=== PATIENT | male | born 1975 | race Caucasian/White ===

== ENCOUNTER 2024-03-17 15:36 | Inpatient (IN) | payer OTHER, SELFPAY ==
[2024-03-17 11:44] VITALS: BP 196/96
--- NOTE | 2024-03-17 13:16 | ED.GENMED ---
History of Present Illness
General
Chief Complaint: Skin Problem
Source: patient and family
Exam Limitations: none
Time Seen by Provider: 03/17/24 12:48
Nursing documentation reviewed up to this point in time: agreed with
History of Present Illness
History of Present Illness:
48-year-old male originally from [place] Works as a pentecostalism person at the [employer], presents for swelling of his left foot is diabetic he has had his great toe amputated
His diet she was debrided callus from his plantar surface has been on antibiotics increased swelling no fever no confusion minimal drainage there is some warmth of his foot
Past History
Past History
ED Past Medical History: NIDDM
ED Past Surgical History: Orthopedic (Amputation of great toe) and Other (Left great toe amputation)
Social History
Tobacco: Non-smoker
Alcohol: None
Drug: None
Living: with family
Employment: Employed
Family History
Family History: Diabetes
Review of Systems
Review of Systems
All Other Systems: Not applicable
Constitutional: Denies fever or fatigue
EENT: Reports no symptoms
Phy Exam
Physical Exam
Physical Exam:
Physical Exam
General: no apparent distress, not acutely ill
Neck: No jaundice
Heart: s1/s2 regular rate and rhythm, no murmur. equal radial pulses.
Lungs: no acute respiratory distress. clear bilaterally
Neuro: alert and oriented. no focal neurological deficits
Skin: no rash
Psychiatric: well kept. interactive and cooperative
Extremities: Surgically absent left great toe eschar with erythema on the left foot of the left proximal calf
Course
Orders/Labs/Results
Orders:
Orders
03/17/24 12:54
Foot, Left 3 View [CR Foot - Left Min 3 Views] Urgent
Comment:
Reason For Exam: infection
03/17/24 13:12
CRP [C-Reactive Protein] Urgent
Complete Blood Count/With Diff Urgent
Comprehensive Metabolic Panel Urgent
ESR [Erythrocyte Sed Rate] Urgent
Abnormal Lab Results
03/17/24
13:12
WBC 4.4 L 10^3/uL
(4.8-10.8)
RBC 4.14 L 10^6/uL
(4.70-6.10)
Hgb 12.1 L g/dL
(13.0-18.0)
Hct 36.2 L %
(39.0-52.0)
Monocytes % 11.1 H %
(1.7-9.3)
ESR 64 H mm/hour
(0-20)
BUN 37 H mg/dl
(9-20)
Glucose 150 H mg/dl
(70-99)
C-Reactive Protein 42.90 H mg/L
(0.0-10.00)
03/17/24 13:12
03/17/24 13:12
Vital Signs
Initial and Last Documented VS:
Initial Vital Signs
Temp Pulse Resp BP Pulse Ox
98.2 F 62 16 196/96 98
03/17/24 11:44 03/17/24 11:44 03/17/24 11:44 03/17/24 11:44 03/17/24 11:44
Last Documented Vital Signs
Temp Pulse Resp BP Pulse Ox
98.2 F 62 16 196/96 98
03/17/24 11:44 03/17/24 11:44 03/17/24 11:44 03/17/24 11:44 03/17/24 11:44
MDM/Problems Addressed
Differential Diagnosis Includes:
Cellulitis osteomyelitis abscess nonvisualized foreign body
MDM/Problems Addressed:
Diabetic foot
Chronic conditions affecting care:
Diabetes
Chronic conditions affecting care: DM
Acute Exacerbation and/or Progression of Chronic Illness: DM
*Radiology
Radiology exam reviewed: radiology read reviewed
*Pulse Oximetry
Patient hypoxic: no
*Critical Care Note
Total Time (30-74mins, 75-104mins- exclusive of procedures): Not Applicable
Update Note
Update Note:
Update labs noted sed rate CRP noted x-ray pending
ED Attending Note
-
Portions of this chart may have been created with voice recognition software.� Occasional wrong word or��sound alike� substitutions may have occurred due to the inherent limitations of voice recognition software.
Discharge Plan
Departure
Patient Disposition: Admit
Date of Disposition: 03/17/24
Time of Disposition: 14:24
Admit to: Med/Surg
Presentation/result/management discussed w/ accepting MD/DO: Hospitalist
Patient with high blood pressure during this ER visit?: No
Condition: Fair
Discharge Problem:
Diabetic foot ulcer, Cellulitis of left foot
Prescriptions:
No Action
metformin 500 mg Tablet
500 mg PO BID@0800,1700 Qty: 60 0RF
cyanocobalamin (vitamin B-12) 1,000 mcg Tablet
1,000 mcg PO DAILY
lisinopril 5 mg tablet
5 mg PO DAILY
cefazolin 10 gram Recon Soln
2 g IV Q8H Qty: 126 0RF
Rx Instructions:
6 week supply
(DME) OneTouch Verio test strips Strip
Qty: 100 0RF
Rx Instructions:
test AM sugars while on Lantus
insulin glargine [Basaglar KwikPen U-100 Insulin] 100 unit/mL (3 mL) Insulin Pen
10 unit SC HS Qty: 5 0RF
(DME) pen needle, diabetic [BD Ultra-Fine Nivia Pen Needle] 32 gauge x 5/32' Needle
Qty: 200 0RF
Rx Instructions:
As Directed
(DME) lancets [Color Lancets] 21 gauge Misc
Qty: 100 0RF
Rx Instructions:
As Directed
Referrals:
UNKNOWN - PT DOES,NOT KNOW [Family Provider] -
Interventions
Interventions:
*Risk Screen - Suicide Last Done: 03/17/24 11:44
*Neglect/Abuse Screening Last Done: 03/17/24 11:44
ED-Skin Assessment Last Done: 03/17/24 13:10
Discharge Date and Time
Print Language: SOMALI
[2024-03-17 13:24] LABS: % Basophils 0.7 % (0-2); % Eosinophils 2.3 % (0-6); % Immature Granulocytes 0.2 % (0-0.5); % Lymphocytes 29.1 % (20.5-51.1); % Monocytes 11.1 % (1.7-9.3); % Neutrophils 56.6 % (42.2-75.2); Absolute Eosinophils 0.1 10^3/uL (0-0.7); Absolute Lymphocytes 1.3 10^3/uL (1.2-3.4); Absolute Monocytes 0.5 10^3/uL (0.1-0.6); Absolute Neutrophils 2.5 10^3/uL (1.4-6.5); Hematocrit 36.2 % (39.0-52.0); Hemoglobin 12.1 g/dL (13.0-18.0); Mean Corp Hgb Conc. 33.4 g/dL (33.0-37.0); Mean Corpuscular Hgb 29.2 pg (27.0-31.0); Mean Corpuscular Volume 87.4 fL (80.0-94.0); Mean Platelet Volume 8.9 fL (7.4-10.4); Nucleated Red Blood Cells % 0 % (-); Platelet Count 375 10^3/uL (130-400); Red Blood Cell Count 4.14 10^6/uL (4.70-6.10); Red Cell Dist. Width 12.1 % (11.5-14.5); White Blood Cell Count 4.4 10^3/uL (4.8-10.8)
[2024-03-17 13:41] LABS: ALT (SGPT) 18 U/L (0-50); AST (SGOT) 24 U/L (17-59); Albumin 4.4 g/dl (3.5-5.0); Alkaline Phosphatase 60 U/L (38-126); Blood Urea Nitrogen 37 mg/dl (9-20); Calcium 9.8 mg/dl (8.4-10.2); Carbon Dioxide 26 mmol/L (22-30); Chloride 101 mmol/L (98-107); Glucose 150 mg/dl (70-99); Potassium 4.7 mmol/L (3.5-5.1); Sodium 142 mmol/L (135-145); Total Bilirubin 0.7 mg/dl (0.2-1.3); Total Protein 7.4 g/dl (6.3-8.2); eGFR > 60.00
--- NOTE | 2024-03-17 14:02 | HPS.HSE ---
Family Physician
-
Family Physician: NOT KNOW UNKNOWN - PT DOES
Chief Complaint
-
Foot infection
History of Present Illness
Patient is a 48-year-old male with past medical history significant for type 2 diabetes, hypertension, hyperlipidemia and iron deficiency who presented to [facility] ED for selling to left foot. Patient has history of osteomyelitis and left great
toe amputation. Patient states he has had a callused area on left foot for approximately a year. last Sunday, March 10, 2024, he saw podiatry outpatient for increased pain, where podiatry did a debridement of callus and placed on oral antibiotics.
Oral antibiotics failed and patient presented for evaluation for increased swelling and pain. Patient denies any fever, chills, chest pain, shortness of breath, cough, nausea, vomiting, constipation, diarrhea or urinary symptoms.
Medical History
Past Medical History
Past Medical History: Reports Other
Additional Past Medical History:
Type 2 diabetes
Hypertension
Hyperlipidemia
Iron deficiency
Past Surgical History: Reports Other
Additional Past Surgical History:
Left great toe amputation 04/2022
Social History
Tobacco: Non-smoker
Alcohol: None
Drug: None
Personal: Single
Living: With Roomate ([facility] at [facility])
Employment: Employed
Family History
Family History: Not pertinent
Allergies / Home Medications
Allergies reflects when Allergies were last updated in [employer].
Home Medications with original date entered in [employer]
Allergy/Medication List:
Allergies
Allergy/AdvReac Type Severity Reaction Status Date / Time
No Known Allergies Allergy Verified 03/17/24 11:48
Home Medications
metformin 500 mg tablet 500 mg PO BID@0800,1700 Diabetes #60 tabs 05/10/22
cyanocobalamin (vitamin B-12) 1,000 mcg tablet 1,000 mcg PO DAILY Supplement 09/22/22
lisinopril 5 mg tablet 5 mg PO DAILY Blood pressure 09/22/22
collagenase clostridium histo. 250 unit/gram topical ointment (Santyl) 1 applic topical HS foot wound 03/17/24
ezetimibe 10 mg tablet 10 mg PO HS 03/17/24
rosuvastatin 10 mg tablet 10 mg PO HS 03/17/24
Review of Systems
-
History Source: Patient
Constitutional: Reports No Symptoms
EENT: Reports No Symptoms
Respiratory: Reports No Symptoms
Cardiac: Reports No Symptoms
Abdomen/GI: Reports No Symptoms
: Reports No Symptoms
Musculoskeletal: Reports Other (Left foot pain)
Skin: Reports Other (Left foot plantar wound)
Neurological: Reports No Symptoms
Endocrine: Reports No Symptoms
Hematologic/Lymphatic: Reports No Symptoms
Psych: Reports No Symptoms
Physical Exam
Vital Signs
Vital Signs
Temp Pulse Resp BP Pulse Ox
98.2 F 62 16 196/96 98
03/17/24 11:44 03/17/24 11:44 03/17/24 11:44 03/17/24 11:44 03/17/24 11:44
Physical Exam
General: Well Developed, Well Nourished, No Apparent Distress, Comfortable and Conversant (has observation nurse present to assist with some conversation)
HEENT: NormoCephalic, Moist mucous membranes, Atraumatic, Good Dentition, Barnard Conjunctivae, Nose Appears Normal and Ears Appear Normal
Respiratory: Clear and Non Labored Respirations; No Wheezes, Rales, Rhonchi or Crackles
Cardiac: S1/S2 and Regular Rhythm; No Murmur, Rub or Gallop
Breast: Deferred by me
GI: Soft, Non Tender, Non Distended and Normal Bowel Sounds; No Organomegaly
Rectal: Deferred by Provider
Genito-urinary: Deferred by me
Musculoskeletal: No Clubbing, No Cyanosis, Normal Gait & Station and Other (edema at site of wound on left plantar foot)
Skin: Warm, Dry, Lesions (left plantar foot wound with redness, edema and warm to touch no drainage present) and IV/Catheter Site; No Rash
Neuro: Awake, Alert, AO x 3, Nonfocal/grossly intact and Cranial Nerves Intact
Hematologic/Lymphatic: No Lymphadenopathy
Psych: Calm and Intact Judgment/Insight
Laboratory Results
-
03/17/24 13:12
03/17/24 13:12
Laboratory Results
Total Bilirubin 0.7 mg/dl (0.2-1.3) 03/17/24 13:12
AST 24 U/L (17-59) 03/17/24 13:12
ALT 18 U/L (0-50) 03/17/24 13:12
Alkaline Phosphatase 60 U/L (38-126) 03/17/24 13:12
Data Reviewed
-
Lab Data: Labs Reviewed by me
Impression/Plan
-
IMPRESSION/PLAN:
#Left foot infection/osteomyelitis?
- open wound to left foot sole
- Hx osteomyelitis with left great toe amputation
- X-Ray: pending
- MRI: pending
- Admit to med/surg for further management
- Consult Podiatry
- Consult ID
- IV Vanco
#Type 2 diabetes
- continue metformin
- AccuCheck with SSI AC&HS
#Hypertension
- continue lisinopril
- PRN Hydralazine for SBP >165 and DBP >110
#Hyperlipidemia
- continue ezetimibe and rosuvastatin
#Iron deficiency
- continue vit B12
Full Code
DVT Px: Lovenox sq
[2024-03-17 14:22] LABS: Erythrocyte Sed Rate 64 mm/hour (0-20)
--- NOTE | 2024-03-17 14:50 | W.PN.UPDATE ---
Update Note
Progress Note Update
I could not get any information from the patient as little Anguillan proficiency. mainly Cook Islander speaker
Information gathered by chart review and speaking with the ER staff and AP
This note serves as an addendum to the H&P by business management consultant LINDA Elmira Lyman
HPI
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
- s/p Lt great toe amputation
- s/p debrided callus last Sunday03/10/24 from plantar surface has been on antibiotics but increased swelling
- no fever no confusion minimal drainage there is some warmth of his foot
- HX MRSA POS WD Cx in September 2022
Reviewed VS: afebrile BP 195/95 HR 60
PE
Gen: Not toxic, conversant, little Anguillan speaker
HEENT: anicteric
Neck: supple
Lungs: CTA
Cor: RRR S1 S2
Abdomen: soft benign
PIPE COREMAKER: AAO3 NFND
MS: surgically absent left great toe eschar with erythema on the left foot of the left proximal calf
Psych: seems appropriate
Data
Laboratory Tests
03/17/24
13:12
WBC 4.4 L
Hgb 12.1 L
Plt Count 375
BUN 37 H
Creatinine 1.1
Glucose 150 H
C-Reactive Protein 42.90 H
03/17/24 MRI Gabby pending
09/24/22 Lt Gabby MRI
1. Extensive infection of the forefoot, as detailed above.
- Osteomyelitis of the residual first metatarsal shaft, second metatarsal, second proximal phalanx, third metatarsal, third proximal phalanx, distal fourth metatarsal, and base of the fourth proximal phalanx.
- Plantar forefoot soft tissue wound with a contiguous soft tissue abscess in the second intermetatarsal space and surrounding the heads of the second and third metatarsals.
- Cellulitis and infectious myositis throughout the forefoot superimposed upon the chronic changes of diabetic myopathy.
2. Dorsal dislocations of the second and third metatarsophalangeal joints.
3. Hallux amputation at the level of the mid metatarsal shaft.
ASSESSMENT & PLAN
Left diabetic foot infection s/p
HX MRSA POS WD infection : s/p debrided callus last Sunday03/10/24 from plantar surface
- Elevated CRP
- MRI of Lt Gabby pending
- Empiric IV Vancomycin
- Podiatry consulted
- ID consult
DM2 with hyperglycemia
- hyperglycemia in setting of acute infection
- A1c 7.3%, previously 11.3% 6 months ago
- c/w Metformin
- No longer on Lantus
- add Low SSI
Essential hypertension
-continue lisinopril
- add IV Hydralazine PRN > SBL 165. DBP > 110
Chronic normocytic anemia -unclear etiology
DVT ppx: Lovenox
Code: Full
IP MS
[2024-03-17 14:59] VITALS: BMI 28.9
--- NOTE | 2024-03-17 15:13 | PHA.VAN.IN ---
Assessment
- Assessment
Renal Function: Appears similar to baseline
Concomitant Antimicrobials: none
Historical Micro: History of MRSA infection (toe wound culture )
- Previous Dosing Experience
Previous Regimen: 1500 mg q12h
Date of Regimen: May 2022
Provided Trough of: 11.2
Provided AUC of: 405
Patient's SCR is: Similar to previous dosing experience (previous scr 0.7-> 1.0)
Patient's weight is: Elevated compared to previous dosing experience (96.9 vs 102 kg)
AUC Dosing Plan
- Dosing Variables
Dosing Weight (kg): 102
Dosing CrCl (ml/min): 93
Vd coefficient (L/kg): 0.7
- Empiric Dosing
Initial / Loading Dose: 2000 mg x 1 - adm pending
Maintenance Regimen: 1500 mg q12h - to start AM 03/18/24
Estimated AUC (mcg*h/mL): 547
Estimated Peak (mcg*h/mL): 33.6
Estimated Trough (mcg/ml): 14.3
Estimated Half Life (H): 8.5
- Monitoring
No levels ordered at this time: consider levels when pt reached steady state
Pharmacokinetics Vancomycin I
- -
Patient Age: 48
Patient Sex: Male
Vancomycin Day #: 1
Indication: Skin And Soft Tissue
Requesting Provider: Elmira Lyman
Height / Weight:
Height 6 ft 2 in
Actual Weight 102.058 kg
Pertinent Past Medical History: DM, L toe amputation 04/27
- Vital Signs / Lab Results
Temp Pulse Resp BP Pulse Ox
98.2 F 62 16 196/96 98
03/17/24 11:44 03/17/24 11:44 03/17/24 11:44 03/17/24 11:44 03/17/24 11:44
Lab Results - Hematology
03/17/24
13:12
WBC 4.4 L
Lab Results - Chemistry
03/17/24
13:12
BUN 37 H
Creatinine 1.1
Albumin 4.4
[2024-03-17] MEDS: VANCOCIN 540 MG IV (16:26)
[2024-03-17 17:00] VITALS: BP 155/83
[2024-03-17 17:32] LABS: Glucose - Point of Care 126 mg/dl (70-99)
[2024-03-17] MEDS: NOVOLOG FLEXPEN-LOW RESISTANCE SC (17:47)
[2024-03-17] MEDS: LOVENOX 40 MG SC (17:47)
--- NOTE | 2024-03-17 17:47 | CON.ID ---
Consultation
-
Date/Time Consultation Requested: 03/17/24 16:38
Date/Time Consultation Performed: 03/17/24 17:48
Requesting Provider: Nura GREGORY
Performing Provider: Dr Ellis
Reason for Consultation: diabetic foot infection
Chief Complaint / Past History
Chief Complaint
foot infection
History of Present Illness
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
yielded no growth, biopsy of the 2nd metatarsal bone yielded no growth, wound culture yileded few MSSA; he is s/p amputation of the great toe and partial amputation of the 1st metatarsal in september 2022. He completed a 6 week course of cefazolin for
the suspected residual osteomyelitis. In the interim he has generally done well, reports no fevers or chills. As part of his profession he does spend extended periods of time walking. He did develop a callous with increasing pain overlying the
residual distal first left metatarsal which was routinely debrided, later developing a blister and then a fistula draining some bloody fluid. Patient denies any fever, chills, chest pain, shortness of breath, cough, nausea, vomiting, constipation,
diarrhea or urinary symptoms.
Since arrival here he has been afebrile, bp stable, wbc 4.4, hgb 12, plt 375, cr 1.1, crp 42, MRI today (not availble during my exam but now reported) shows 'Acute osteomyelitis involving the entire second metatarsal, the majority of the second
proximal phalanx, the head of the third metatarsal, and the third proximal phalanx with osseous destructive changes of osteomyelitis/septic arthritis centered at the second and third metatarsophalangeal joints. Large plantar soft tissue wounds.
Chronic dorsal dislocations of the second and third metatarsophalangeal joints' progression from last year. wound cultures aerobic and anaerobic have been obtained.
Past History
Additional Past Medical History:
Type 2 diabetes
Hypertension
Hyperlipidemia
Iron deficiency
Additional Past Surgical History:
Left great toe amputation 04/2022
Allergy History:
No Known Allergies Allergy (Verified 03/17/24 11:48)
Medications Reviewed: Yes
Social History
Tobacco: Non-Smoker
Alcohol: None
Drug: None
Personal: Single
Family History
Family History: Not Pertinent
Review of Systems
Review of Systems
General: Negative Fever, Chills or Change in Appetite
All systems: All other systems were reviewed and were negative
Vital Signs
Temp Pulse Resp BP Pulse Ox
98.1 F 61 18 155/83 97
03/17/24 17:00 03/17/24 17:00 03/17/24 17:00 03/17/24 17:00 03/17/24 17:00
Physical Exam
Physical Exam
Constitutional: No Acute Distress
Cardiovascular: Regular Rate and S1/S2; Negative Murmur or Rub
Pulmonary: Clear and Symmetric; Negative Wheezes, Rales or Rhonchi
Gastrointestinal: Soft, Non Tender, Non Distended and Normal Bowel Sounds
Skin: Warm and Dry; Negative Rash or Jaundice
Wound: Other (callous over L residual metatarsal with small fistula without definite probe to bone)
Lab / Diagnostic Study Results
03/17/24 13:12
03/17/24 13:12
Abs Immat Gran (auto) 0.0 10^3/uL (0-0.05) 03/17/24 13:12
Absolute Neuts (auto) 2.5 10^3/uL (1.4-6.5) 03/17/24 13:12
Absolute Lymphs (auto) 1.3 10^3/uL (1.2-3.4) 03/17/24 13:12
Absolute Monos (auto) 0.5 10^3/uL (0.1-0.6) 03/17/24 13:12
Absolute Basos (auto) 0.0 10^3/uL (0-0.2) 03/17/24 13:12
Immature Gran % 0.2 % (0-0.5) 03/17/24 13:12
Neutrophils % 56.6 % (42.2-75.2) 03/17/24 13:12
Lymphocytes % 29.1 % (20.5-51.1) 03/17/24 13:12
Monocytes % 11.1 % (1.7-9.3) H 03/17/24 13:12
Eosinophils % 2.3 % (0-6) 03/17/24 13:12
Basophils % 0.7 % (0-2) 03/17/24 13:12
ESR 64 mm/hour (0-20) H 03/17/24 13:12
C-Reactive Protein 42.90 mg/L (0.0-10.00) H 03/17/24 13:12
Microbiology Results
Micro:
03/17/24 17:18 Anaerobic Culture - Pending
Foot - Left
03/17/24 17:18 Wound Culture - Pending
Foot - Left Gram Stain - Pending
Assessment / Plan
Suspected relapse of osteomyelitis of 2nd metatarsal/phalanx, head of 3rd metatarsal/phalanx, 2nd/3rd MTP joints
H/o Osteomyelitis due to MSSA
Diabetic Foot Infection
DM2
- if fever or shock then would get blood cultures x2
- aerobic and anaerobic cultures of the wound done
- agree with vancomycin for now
- if patient goes for surgery, would obtain cultures of the bone as well
- given stability would not broaden therapy yet as yield of future cultures would be impacted
--- NOTE | 2024-03-17 19:30 | PTCARENOTE ---
Pt received at change of shift from day shift nurse. Pt pleasant, AAOX3, VSS, and resting in bed. Pt does not complain of any pain at this time. Pt bed in lowest position and call jesus within reach. Pt educated on importance of call jesus usage, pt
relays understanding and cooperation. Will continue with current plan of care.
[2024-03-17] MEDS: CRESTOR 10 MG PO (21:03)
[2024-03-17] MEDS: ZETIA 10 MG PO (21:03)
[2024-03-17 21:41] LABS: Glucose - Point of Care 137 mg/dl (70-99)
[2024-03-17 23:20] VITALS: BP 134/69
[2024-03-18] MEDS: VANCOCIN 530 MG IV ×2 (05:52→17:56)
[2024-03-18] MEDS: ZESTRIL 5 MG PO (07:23)
[2024-03-18] MEDS: VITAMIN B-12 1000 MCG PO (07:23)
[2024-03-18 07:26] LABS: Glucose - Point of Care 145 mg/dl (70-99)
[2024-03-18] MEDS: NOVOLOG FLEXPEN-LOW RESISTANCE SC ×2 (07:28→16:37)
[2024-03-18 07:47] VITALS: BP 139/75
[2024-03-18 08:48] LABS: Hematocrit 34.6 % (39.0-52.0); Hemoglobin 11.8 g/dL (13.0-18.0); Mean Corp Hgb Conc. 34.1 g/dL (33.0-37.0); Mean Corpuscular Hgb 30.4 pg (27.0-31.0); Mean Corpuscular Volume 89.2 fL (80.0-94.0); Mean Platelet Volume 8.8 fL (7.4-10.4); Platelet Count 341 10^3/uL (130-400); Red Blood Cell Count 3.88 10^6/uL (4.70-6.10)
[2024-03-18 09:25] LABS: Blood Urea Nitrogen 27 mg/dl (9-20); Calcium 9.3 mg/dl (8.4-10.2); Carbon Dioxide 26 mmol/L (22-30); Chloride 106 mmol/L (98-107); Estimated Creatinine Clearance 93 ml/min; Glucose 156 mg/dl (70-99); Potassium 4.7 mmol/L (3.5-5.1); Sodium 142 mmol/L (135-145); eGFR > 60.00
[2024-03-18 09:34] LABS: Glycohemoglobin (HgbA1c) 7.6 % (4.0-5.6)
--- NOTE | 2024-03-18 09:57 | PHA.VAN.FU ---
Vancomycin Assessment / Plan
- Assessment
Renal Function: Stable
In the past 24 hrs, patient has been: Afebrile
- Dosing Plan
Continue: Vanc 1500mg Q12H
- Monitoring Plan
No level(s) ordered at this time: consider levels in next few days
- Follow Up
Pharmacy will continue to follow.
Vancomycin Follow UP
- -
Patient Age: 48
Patient Sex: Male
Vancomycin Day #: 2
Indication: Skin And Soft Tissue
Requesting Provider: Elmira Lyman
Pertinent Antimicrobial Allergies:
NKDA
Height / Weight:
Height 6 ft 2 in
Actual Weight 102.058 kg
Pertinent Past Medical History: DM, L toe amputation 04/27
- Vital Signs / Lab Results
Temp Pulse Resp BP Pulse Ox
98.1 F 61 18 139/75 96
03/18/24 07:47 03/18/24 07:47 03/18/24 07:47 03/18/24 07:47 03/18/24 07:47
Lab Results - Hematology
03/17/24 03/18/24
13:12 08:09
WBC 4.4 L 3.0 L
Lab Results - Chemistry
03/17/24 03/18/24
13:12 08:09
BUN 37 H 27 H
Creatinine 1.1 1.1
Estimated Creat Clear 93
Albumin 4.4
Microbiology Results
03/17/24 17:18 Gram Stain - Preliminary
Foot - Left
--- NOTE | 2024-03-18 10:20 | W.PN.ID1 ---
Date of Service
Date of Service: March 18, 2024
Today's Communication
- MRI reviewed, my impression is relapse likely due to the previously identified s aureus - could be resistant at this point
- c/w vancomycin
- appreciate podiatry input
Assessment / Plan
Suspected relapse of osteomyelitis of 2nd metatarsal/phalanx, head of 3rd metatarsal/phalanx, 2nd/3rd MTP joints
H/o Osteomyelitis due to MSSA
Diabetic Foot Infection
DM2
- if fever or shock then would get blood cultures x2
- aerobic and anaerobic cultures of the wound done - gram stain few GPCs
- MRI reviewed, my impression is relapse likely due to the previously identified s aureus - could be resistant at this point
- agree with vancomycin for now
- if patient goes for surgery, would obtain cultures of the margin of the bone as well
- appreciate podiatry input
- given stability would not broaden therapy yet as yield of future cultures would be impacted
Chief Complaint
-: Other
Subjective / Review of Systems
afebrile
bp stable
no events overnight
Vital Signs / Physical Exam
Vital Signs
Vital Signs
Temp Pulse Resp BP Pulse Ox
98.1 F 61 18 139/75 96
03/18/24 07:47 03/18/24 07:47 03/18/24 07:47 03/18/24 07:47 03/18/24 07:47
Physical Exam
Constitutional: No Acute Distress
Cardiovascular: Regular Rate and S1/S2; Negative Murmur or Rub
Pulmonary: Clear and Symmetric; Negative Wheezes or Rales
Gastrointestinal: Soft, Non Tender, Non Distended and Normal Bowel Sounds
Skin: Warm and Dry; Negative Rash or Jaundice
Wound: Other (callous over L residual metatarsal with small fistula without definite probe to bone - smaller today, drainage clear/yellow)
Neurological: Awake
Objective Data
Lab Data
Lab Results
03/18/24 08:09
03/18/24 08:09
ESR 64 mm/hour (0-20) H 03/17/24 13:12
Estimated Creat Clear 93 ml/min 03/18/24 08:09
Total Bilirubin 0.7 mg/dl (0.2-1.3) 03/17/24 13:12
AST 24 U/L (17-59) 03/17/24 13:12
ALT 18 U/L (0-50) 03/17/24 13:12
Alkaline Phosphatase 60 U/L (38-126) 03/17/24 13:12
C-Reactive Protein 42.90 mg/L (0.0-10.00) H 03/17/24 13:12
Most recent labs reviewed.
MRI: Image Reviewed and Report Reviewed
Micro Results:
03/17/24 17:18 Wound Culture - Pending
Foot - Left Gram Stain - Preliminary
03/17/24 17:18 Anaerobic Culture - Pending
Foot - Left
[2024-03-18 12:06] LABS: Glucose - Point of Care 205 mg/dl (70-99)
[2024-03-18] MEDS: NOVOLOG FLEXPEN-LOW RESISTANCE 2 UNITS SC (12:37)
--- NOTE | 2024-03-18 14:07 | W.PN.HOSP.TC ---
Today's Communication/Plan
-
LE art doppler
await pods input
Assessment / Plan
Assessment / Plan
LLE MRI
Acute osteomyelitis involving the entire second metatarsal, the majority of the second proximal phalanx, the head of the third metatarsal, and the third proximal phalanx with osseous destructive changes of osteomyelitis/septic arthritis centered at
the second and third metatarsophalangeal joints. Large plantar soft tissue wounds. Chronic dorsal dislocations of the second and third metatarsophalangeal joints.
1. Left diabetic foot infection and osteomyelitis
Hx MRSA POS WD infection : s/p debrided callus last Sunday03/10/24 from plantar surface
-MRI foot report as above
-ID following based on previous history of isolation of Staph aureus organism, patient being maintained on vancomycin
-Repeat lower arterial Doppler ordered
-Podiatry has been consulted for further evaluation
2. DM2 with hyperglycemia
- hyperglycemia in setting of acute infection
- A1c 7.3%, previously 11.3% 6 months ago
- c/w Metformin
- No longer on Lantus
- add Low SSI
3. Essential hypertension
-continue lisinopril
- add IV Hydralazine PRN > SBL 165. DBP > 110
Chronic normocytic anemia -unclear etiology
DVT ppx: Lovenox
Code: Full
Anticipated Discharge: 24 - 48 hours
Subjective/Interval History
-
Date of Service: March 18, 2024
Denies of having significant left leg pain
Afebrile
no issues overnight
Objective Data
-
Labs:
Laboratory Results
03/18/24
08:09
WBC 3.0 L
Hgb 11.8 L
Hct 34.6 L
Plt Count 341
Sodium 142
Potassium 4.7
Chloride 106
Carbon Dioxide 26
BUN 27 H
Creatinine 1.1
Glucose 156 H
Calcium 9.3
Vital Signs:
Vital Signs
Temp Pulse Resp BP Pulse Ox
98.1 F 61 18 139/75 96
03/18/24 07:47 03/18/24 07:47 03/18/24 07:47 03/18/24 07:47 03/18/24 07:47
I&O
03/17/24 03/18/24 03/19/24
06:59 06:59 06:59
Intake Total 770 / 770
Balance 770 / 770
Review of Systems
-
Respiratory: Reports No Symptoms
Cardiac: Reports No Symptoms
Abdomen/GI: Reports No Symptoms
Physical Exam
-
General: No Apparent Distress and Comfortable
HEENT: Negative Oxygen
Respiratory: Clear to Auscultation
Cardiac: Regular Rhythm and S1/S2; Negative Murmur or Rub
GI: Soft, Nontender, Nondistended and Normal Bowel Sounds
Musculoskeletal: No Edema and Other (Left foot bandage)
Neuro: Awake, Alert, Oriented, No Motor Deficits and Nonfocal/Grossly Intact
Psych: Calm
--- NOTE | 2024-03-18 15:00 | CM ---
Addendum entered by Sinai Steele 03/18/24 16:07:
Patient seen bedside with nurse, friend visiting in waiting room- CM met with patients friend for assessment questions- friend requesting CM to return at a later time as they just received upsetting news. Per nurse, patient will likely be here until
end of week. Per previous CM note from 2022- patient reside with friend in [place] home, has a RW, history of IV antibiotics with [facility]. PCP Dr. Sanford, pharmacy [facility]. CM will confirm with patient/friend tomorrow.
Plan; watch for IV antibiotic, VN needs upon discharge.
Original Note:
Patient seen bedside, placed call to friend to assist with translation no response, patient asking CM to return. CM will return at later time to conduct initial assessment.
CM returned, patient off floor. CM will return to complete assessment.
Plan; home no needs likely.
--- NOTE | 2024-03-18 15:10 | CON.MD ---
Consultation - Medical
-
48 year old diabetic male well known to our service admitted with swelling and cellulitis of the left foot. Was seen in my office for debridement of ulcer plantar left forefoot resulting from previous partial first ray amputation and significant
weight bearing required by his profession. Ulcer had healed to less than 0.25 cm full thickness skin but noticed small amount of drainage. Was placed on Augmentin and told to go directly to the ED with any increase in symptoms. Called the office
03/13 with increase in swelling and was told to go directly to the ED, but did not present until 03/17. He is afebrile with WBC in normal range.
MRI left foot significant for acute osteomyelitis involving the entire second metatarsal, second proximal phalanx, the head of the third metatarsal, and the third proximal phalanx Osseous destructive changes of osteomyelitis/septic arthritis
centered at the second and third metatarsophalangeal joints and chronic dorsal dislocations of the second and third metatarsophalangeal joints. Chronic degenerative changes of the midfoot and hindfoot with severe diabetic myopathy of the intrinsic
foot muscles noted.
Agree with ID that this may be recurrence of previous MSSA and to continue current antibiotic therapy as patient is stable. Transmetatarsal amputation will be discussed with the patient including, bone cultures and post operative IV antibiotic
therapy, as the majority of the 2nd metatarsal may be involved.
Once Doppler studies are available and patient can be examined (he is currently out for doppler studies) and TMA will be scheduled.
[2024-03-18 15:41] VITALS: BP 148/81
[2024-03-18 16:34] LABS: Glucose - Point of Care 141 mg/dl (70-99)
[2024-03-18] MEDS: LOVENOX 40 MG SC (17:57)
[2024-03-18] MEDS: ZETIA 10 MG PO (21:40)
[2024-03-18] MEDS: CRESTOR 10 MG PO (21:40)
[2024-03-18 22:15] LABS: Glucose - Point of Care 120 mg/dl (70-99)
[2024-03-18 23:02] VITALS: BP 128/70
[2024-03-19] MEDS: VANCOCIN 530 MG IV ×2 (05:13→17:25)
[2024-03-19 07:30] VITALS: BP 153/76
[2024-03-19 07:31] LABS: Glucose - Point of Care 160 mg/dl (70-99)
[2024-03-19 08:49] LABS: Blood Urea Nitrogen 28 mg/dl (9-20); Calcium 9.3 mg/dl (8.4-10.2); Carbon Dioxide 25 mmol/L (22-30); Chloride 105 mmol/L (98-107); Estimated Creatinine Clearance 93 ml/min; Glucose 145 mg/dl (70-99); Potassium 4.5 mmol/L (3.5-5.1); Sodium 142 mmol/L (135-145); eGFR > 60.00
--- NOTE | 2024-03-19 08:50 | PHA.VAN.FU ---
Vancomycin Assessment / Plan
- Assessment
Renal Function: Stable
In the past 24 hrs, patient has been: Afebrile
- Dosing Plan
Continue: Vanc 1500mg Q12H
- Monitoring Plan
Peak Level: 03/19 21:00
Trough Level: 03/20 05:30
Monitoring Comments: levels to be drawn after 4th maintenance dose
During prior dosing experience, levels were drawn after 6th total dose.
SCR remains slightly elevated compared to prior experience. BUN trending down.
- Follow Up
Pharmacy will continue to follow.
Vancomycin Follow UP
- -
Patient Age: 48
Patient Sex: Male
Vancomycin Day #: 3
Indication: Skin And Soft Tissue
Requesting Provider: Elmira Lyman / Dr. Ellis
Pertinent Antimicrobial Allergies:
NKDA
Height / Weight:
Height 6 ft 2 in
Actual Weight 102.058 kg
Pertinent Past Medical History: DM, L toe amputation 04/27
- Vital Signs / Lab Results
Temp Pulse Resp BP Pulse Ox
98.0 F 58 20 153/76 98
03/19/24 07:30 03/19/24 07:30 03/19/24 07:30 03/19/24 07:30 03/19/24 07:30
Lab Results - Hematology
03/17/24 03/18/24
13:12 08:09
WBC 4.4 L 3.0 L
Lab Results - Chemistry
03/17/24 03/18/24 03/19/24
13:12 08:09 07:18
BUN 37 H 27 H 28 H
Creatinine 1.1 1.1 1.1
Estimated Creat Clear 93 93
Albumin 4.4
Microbiology Results
03/17/24 17:18 Anaerobic Culture - Preliminary
Foot - Left Culture pending. Anaerobic cultures are examined after 3
days incubation. Additional information to follow.
03/17/24 17:18 Wound Culture - Preliminary
Foot - Left Gram Stain - Preliminary
[2024-03-19 08:55] LABS: Hematocrit 35.5 % (39.0-52.0); Hemoglobin 12.1 g/dL (13.0-18.0); Mean Corp Hgb Conc. 34.1 g/dL (33.0-37.0); Mean Corpuscular Hgb 30.1 pg (27.0-31.0); Mean Corpuscular Volume 88.3 fL (80.0-94.0); Mean Platelet Volume 9.1 fL (7.4-10.4); Platelet Count 377 10^3/uL (130-400); Red Blood Cell Count 4.02 10^6/uL (4.70-6.10); Red Cell Dist. Width 11.8 % (11.5-14.5); White Blood Cell Count 3.5 10^3/uL (4.8-10.8)
[2024-03-19] MEDS: NOVOLOG FLEXPEN-LOW RESISTANCE 1 UNITS SC ×3 (09:00→17:21)
[2024-03-19] MEDS: ZESTRIL 5 MG PO (09:02)
[2024-03-19] MEDS: VITAMIN B-12 1000 MCG PO (09:02)
[2024-03-19 12:21] LABS: Glucose - Point of Care 173 mg/dl (70-99)
--- NOTE | 2024-03-19 14:06 | W.PN.ID1 ---
Date of Service
Date of Service: March 19, 2024
Today's Communication
- agree with vancomycin for now
Assessment / Plan
Suspected relapse of osteomyelitis of 2nd metatarsal/phalanx, head of 3rd metatarsal/phalanx, 2nd/3rd MTP joints
H/o Osteomyelitis due to MSSA
Diabetic Foot Infection
DM2
- if fever or shock then would get blood cultures x2
- aerobic and anaerobic cultures of the wound done - gram stain few GPCs, culture mixed aleksandr
- MRI reviewed, my impression is relapse likely due to the previously identified s aureus - could be resistant at this point
- agree with vancomycin for now
- if patient goes for surgery, would obtain cultures of the margin of the bone as well
- appreciate podiatry input
- given stability would not broaden therapy yet as yield of future cultures would be impacted
Chief Complaint
-: Other
Subjective / Review of Systems
afebrile
bp stable
no complaints
Vital Signs / Physical Exam
Vital Signs
Vital Signs
Temp Pulse Resp BP Pulse Ox
98.0 F 58 20 153/76 98
03/19/24 07:30 03/19/24 09:02 03/19/24 07:30 03/19/24 09:02 03/19/24 07:30
Physical Exam
Constitutional: No Acute Distress
Cardiovascular: Regular Rate and S1/S2; Negative Murmur or Rub
Pulmonary: Clear and Symmetric; Negative Wheezes or Rales
Gastrointestinal: Soft, Non Tender, Non Distended and Normal Bowel Sounds
Skin: Warm and Dry; Negative Rash or Jaundice
Wound: Other (dressing clean, dry, intact)
Objective Data
Lab Data
Lab Results
03/19/24 07:18
03/19/24 07:18
ESR 64 mm/hour (0-20) H 03/17/24 13:12
Estimated Creat Clear 93 ml/min 03/19/24 07:18
Total Bilirubin 0.7 mg/dl (0.2-1.3) 03/17/24 13:12
AST 24 U/L (17-59) 03/17/24 13:12
ALT 18 U/L (0-50) 03/17/24 13:12
Alkaline Phosphatase 60 U/L (38-126) 03/17/24 13:12
C-Reactive Protein 42.90 mg/L (0.0-10.00) H 03/17/24 13:12
Most recent labs reviewed.
a1c 7.6
Micro Results:
03/17/24 17:18 Anaerobic Culture - Preliminary
Foot - Left Culture pending. Anaerobic cultures are examined after 3
days incubation. Additional information to follow.
03/17/24 17:18 Wound Culture - Preliminary
Foot - Left Gram Stain - Preliminary
moderate mixed skin aleksandr
[2024-03-19 15:00] VITALS: BP 163/90
--- NOTE | 2024-03-19 15:07 | W.PN.HOSP.TC ---
Today's Communication/Plan
-
OR per pods
continue abx
add Procardia for BP control
Assessment / Plan
Assessment / Plan
LLE MRI
Acute osteomyelitis involving the entire second metatarsal, the majority of the second proximal phalanx, the head of the third metatarsal, and the third proximal phalanx with osseous destructive changes of osteomyelitis/septic arthritis centered at
the second and third metatarsophalangeal joints. Large plantar soft tissue wounds. Chronic dorsal dislocations of the second and third metatarsophalangeal joints.
1. Left diabetic foot infection and osteomyelitis
Hx MRSA POS WD infection : s/p debrided callus last Sunday03/10/24 from plantar surface
-MRI foot report as above
-ID following based on previous history of isolation of Staph aureus organism, patient being maintained on vancomycin
-Lower ext art doppler normal and did not show any critical narrowing.
-Podiatry planning to take patient to OR
2. DM2 with hyperglycemia
- hyperglycemia in setting of acute infection
- A1c 7.3%, previously 11.3% 6 months ago
- c/w Metformin
- No longer on Lantus
- add Low SSI
3. Essential hypertension
-continue lisinopril
- add IV Hydralazine PRN > SBL 165. DBP > 110
4. Chronic normocytic anemia -unclear etiology
DVT ppx: Lovenox
Code: Full
Anticipated Discharge: > 48 hours
Subjective/Interval History
-
Date of Service: March 19, 2024
no complains overnight
remains fever free
Objective Data
-
Labs:
Laboratory Results
03/19/24
07:18
WBC 3.5 L
Hgb 12.1 L
Hct 35.5 L
Plt Count 377
Sodium 142
Potassium 4.5
Chloride 105
Carbon Dioxide 25
BUN 28 H
Creatinine 1.1
Glucose 145 H
Calcium 9.3
Vital Signs:
Vital Signs
Temp Pulse Resp BP Pulse Ox
98.0 F 58 20 153/76 98
03/19/24 07:30 03/19/24 09:02 03/19/24 07:30 03/19/24 09:02 03/19/24 07:30
I&O
03/18/24 03/19/24 03/20/24
06:59 06:59 06:59
Intake Total 770 / 770 1310 / 1310
Output Total 0 / 0
Balance 770 / 770 1310 / 1310
Review of Systems
-
Respiratory: Reports No Symptoms
Cardiac: Reports No Symptoms
Abdomen/GI: Reports No Symptoms
Physical Exam
-
General: No Apparent Distress and Comfortable
HEENT: Negative Oxygen
Respiratory: Clear to Auscultation
Cardiac: Regular Rhythm and S1/S2; Negative Murmur or Rub
GI: Soft, Nontender and Nondistended
Musculoskeletal: No Edema and Other (Left foot bandage)
Neuro: Awake, Alert, Oriented, No Motor Deficits and Nonfocal/Grossly Intact
Psych: Calm
--- NOTE | 2024-03-19 15:55 | CM ---
CM reviewed chart, reviewed with Hospitalist, patient for OR per podiatry. CM will continue to follow for all discharge planning needs.
Plan; watch for VN, IV antibiotic needs.
[2024-03-19 16:59] LABS: Glucose - Point of Care 183 mg/dl (70-99)
[2024-03-19] MEDS: PROCARDIA XL (EXTENDED RELEASE) 30 MG PO (17:20)
[2024-03-19] MEDS: LOVENOX 40 MG SC (17:22)
--- NOTE | 2024-03-19 18:03 | W.PN.POD ---
Today's Communication
Today's Communication
Left Transmetatarsal amputation scheduled for tomorrow afternoon. Consent signed with inspector coated fabrics present.
Assessment / Plan
-
Left foot diabetic ulcer with osteomyelitis.
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
-MRI shows acute osteomyelitis of the 2nd metatarsal, 3rd metatarsal head and 2,3 proximal phalanx. Septic arthritis of the 2,3 metatarsal phalangeal joints
-Edema and erythema improved with IV antibiotic therapy, but small plantar ulcer probes directly to 2nd and 3rd MTPJs. History of MRSA, MRI findings and clinically ulcer probing to MTPJ 2 and 3 indicates osteomyelitis will not respond to
antibiotic therapy.
-Discussed with patient through inspector coated [employer] that 2,3,4,5 toes and adjacent metatarsal heads will be removed, as leaving only the 4,5 toes would not promote functional ambulation. Surgery scheduled for tomorrow afternoon.
-PICC line for IV antibiotic therapy may be needed post operatively as MRI shows involvement of the entire 2nd metatarsal which will not be completely removed. Post op antibiotic therapy will be based on intra operative bone cultures.
Diabetes with peripheral neuropathy
-recent HgbA1c 7.3%
Essential Hypertension
Subjective
Objective
Temp Pulse Resp BP Pulse Ox
98.6 F 54 18 163/90 100
03/19/24 15:00 03/19/24 17:20 03/19/24 15:00 03/19/24 17:20 03/19/24 15:00
03/19/24 07:18
03/19/24 07:18
Vital Signs and Lab results were reviewed.
Review of Systems
Review of Systems
Review of Systems: No Fever and No Chills
Physical Exam
Physical Exam
Edema and pain resolving. Plantar left foot ulcer probes to 2nd and 3rd MTP joint. Bloody drainage only.
[2024-03-19 20:38] LABS: Glucose - Point of Care 142 mg/dl (70-99)
[2024-03-19] MEDS: ZETIA 10 MG PO (21:10)
[2024-03-19] MEDS: CRESTOR 10 MG PO (21:10)
[2024-03-19 22:12] LABS: Vancomycin Peak 25.3 ug/ml (18-26)
[2024-03-19 23:30] VITALS: BP 103/59
[2024-03-20] VITALS (11 sets, daily range): BP systolic 99–139; BP diastolic 50–78
[2024-03-20 06:25] LABS: Hematocrit 36.6 % (39.0-52.0); Hemoglobin 12.4 g/dL (13.0-18.0); Mean Corp Hgb Conc. 33.9 g/dL (33.0-37.0); Mean Corpuscular Hgb 29.4 pg (27.0-31.0); Mean Corpuscular Volume 86.7 fL (80.0-94.0); Mean Platelet Volume 8.6 fL (7.4-10.4); Platelet Count 368 10^3/uL (130-400); Red Blood Cell Count 4.22 10^6/uL (4.70-6.10); Red Cell Dist. Width 11.9 % (11.5-14.5); White Blood Cell Count 3.9 10^3/uL (4.8-10.8)
[2024-03-20 06:38] LABS: Vancomycin Trough 16.3 ug/ml (5-20)
[2024-03-20] MEDS: VANCOCIN 530 MG IV (06:42)
[2024-03-20 06:47] LABS: Blood Urea Nitrogen 28 mg/dl (9-20); Calcium 9.9 mg/dl (8.4-10.2); Carbon Dioxide 26 mmol/L (22-30); Chloride 103 mmol/L (98-107); Estimated Creatinine Clearance 93 ml/min; Glucose 152 mg/dl (70-99); Potassium 4.7 mmol/L (3.5-5.1); Sodium 141 mmol/L (135-145); eGFR > 60.00
[2024-03-20 07:37] LABS: Glucose - Point of Care 162 mg/dl (70-99)
--- NOTE | 2024-03-20 08:52 | PHA.VAN.FU ---
Vancomycin Assessment / Plan
- Assessment
Renal Function: Stable
In the past 24 hrs, patient has been: Afebrile
- Assessment - Therapeutic Drug Monitoring
Extrapolated Cmax (mcg/mL): 29.2
Peak level was drawn: Appropriately (drawn ~2.7H after end of previous infusion)
Extrapolated Cmin (mcg/mL): 16.9
Trough Drawn: Appropriately
Levels were drawn: At steady state (levels drawn after 4th maintenance dose)
Calculated AUC (mcg*h/mL): 541
Calculated ke: 0.0518
Calculated half life (H): 13.4
Calculated Vd (L): 107 (~1 L/kg)
Calculated Vanc CL (ml/min): 92
- Dosing Plan
Adjust Regimen to: Vanc 1500mg Q24H starting 03/21 0600 based on half-life
- Monitoring Plan
No level(s) ordered at this time: consider repeat levels to assess new regimen by Dayana or Jordana
- Follow Up
Pharmacy will continue to follow.
Vancomycin Follow UP
- -
Patient Age: 48
Patient Sex: Male
Vancomycin Day #: 4
Indication: Skin And Soft Tissue
Requesting Provider: Elmira Lyman / Dr. Ellis
Pertinent Antimicrobial Allergies:
NKDA
Height / Weight:
Height 6 ft 2 in
Actual Weight 102.058 kg
Pertinent Past Medical History: DM, L toe amputation 04/27
- Vital Signs / Lab Results
Temp Pulse Resp BP Pulse Ox
98.5 F 56 16 112/62 96
03/20/24 07:30 03/20/24 07:30 03/20/24 07:30 03/20/24 07:30 03/20/24 07:30
Lab Results - Hematology
03/17/24 03/18/24 03/19/24
13:12 08:09 07:18
WBC 4.4 L 3.0 L 3.5 L
03/20/24
06:09
WBC 3.9 L
Lab Results - Chemistry
03/17/24 03/18/24 03/19/24
13:12 08:09 07:18
BUN 37 H 27 H 28 H
Creatinine 1.1 1.1 1.1
Estimated Creat Clear 93 93
Albumin 4.4
03/20/24
06:09
BUN 28 H
Creatinine 1.1
Estimated Creat Clear 93
Albumin
Microbiology Results
03/17/24 17:18 Anaerobic Culture - Preliminary
Foot - Left Culture pending. Anaerobic cultures are examined after 3
days incubation. Additional information to follow.
03/17/24 17:18 Wound Culture - Preliminary
Foot - Left Gram Stain - Preliminary
Therapeutic Drug Monitoring
Vancomycin Peak 25.3 ug/ml (18-26) 03/19/24 21:39
Vancomycin Trough 16.3 ug/ml (5-20) 03/20/24 06:08
[2024-03-20] MEDS: NOVOLOG FLEXPEN-LOW RESISTANCE 1 UNITS SC (09:54)
[2024-03-20] MEDS: PROCARDIA XL (EXTENDED RELEASE) 30 MG PO (09:54)
[2024-03-20] MEDS: VITAMIN B-12 1000 MCG PO (09:55)
[2024-03-20] MEDS: ZESTRIL 5 MG PO (09:55)
--- NOTE | 2024-03-20 10:30 | W.PN.ID1 ---
Date of Service
Date of Service: March 20, 2024
Today's Communication
- agree with vancomycin for now
- if patient goes for surgery, would obtain cultures of the margin of the bone as well
- suspect may recommend a course of home IV antibiotics and suppression
Assessment / Plan
Suspected relapse of osteomyelitis of 2nd metatarsal/phalanx, head of 3rd metatarsal/phalanx, 2nd/3rd MTP joints
H/o Osteomyelitis due to MSSA
Diabetic Foot Infection
DM2
- aerobic and anaerobic cultures of the wound done - gram stain few GPCs, culture mixed aleksandr
- MRI reviewed, my impression is relapse likely due to the previously identified MSSA - could be resistant at this point
- agree with vancomycin for now
- if patient goes for surgery, would obtain cultures of the margin of the bone as well
- suspect may recommend a course of home IV antibiotics and suppression
- appreciate podiatry input
- given stability would not broaden therapy yet as yield of future cultures would be impacted
Chief Complaint
-: Other
Subjective / Review of Systems
afebrile
bp stbale
for TMA
Vital Signs / Physical Exam
Vital Signs
Vital Signs
Temp Pulse Resp BP Pulse Ox
98.5 F 56 16 112/62 96
03/20/24 07:30 03/20/24 09:54 03/20/24 07:30 03/20/24 09:54 03/20/24 07:30
Physical Exam
Constitutional: No Acute Distress
Cardiovascular: Regular Rate and S1/S2; Negative Murmur or Rub
Pulmonary: Clear and Symmetric; Negative Wheezes or Rales
Gastrointestinal: Soft, Non Tender, Non Distended and Normal Bowel Sounds
Skin: Warm and Dry; Negative Rash or Jaundice
Wound: Other (dressing clean, dry, intact)
Objective Data
Lab Data
Lab Results
03/20/24 06:09
03/20/24 06:09
ESR 64 mm/hour (0-20) H 03/17/24 13:12
Estimated Creat Clear 93 ml/min 03/20/24 06:09
Total Bilirubin 0.7 mg/dl (0.2-1.3) 03/17/24 13:12
AST 24 U/L (17-59) 03/17/24 13:12
ALT 18 U/L (0-50) 03/17/24 13:12
Alkaline Phosphatase 60 U/L (38-126) 03/17/24 13:12
C-Reactive Protein 42.90 mg/L (0.0-10.00) H 03/17/24 13:12
Most recent labs reviewed.
Micro Results:
03/20/24 09:00 MRSA Screen - Pending
Nose
03/17/24 17:18 Anaerobic Culture - Preliminary
Foot - Left Culture pending. Anaerobic cultures are examined after 3
days incubation. Additional information to follow.
03/17/24 17:18 Wound Culture - Preliminary
Foot - Left Gram Stain - Preliminary
[2024-03-20 12:16] LABS: Glucose - Point of Care 149 mg/dl (70-99)
[2024-03-20] MEDS: NOVOLOG FLEXPEN-LOW RESISTANCE SC ×2 (12:17→17:06)
--- NOTE | 2024-03-20 13:03 | CM ---
CM reviewed chart, patient seen bedside with family, reports they are trying to sleep, asked CM to return at a later time. CM will follow for all discharge planning needs.
Plan; watch for VN/IV antibiotic needs upon discharge.
--- NOTE | 2024-03-20 13:59 | W.PN.HOSP.TC ---
Today's Communication/Plan
-
going to OR today
continue other care
Assessment / Plan
Assessment / Plan
LLE MRI
Acute osteomyelitis involving the entire second metatarsal, the majority of the second proximal phalanx, the head of the third metatarsal, and the third proximal phalanx with osseous destructive changes of osteomyelitis/septic arthritis centered at
the second and third metatarsophalangeal joints. Large plantar soft tissue wounds. Chronic dorsal dislocations of the second and third metatarsophalangeal joints.
1. Left diabetic foot infection and osteomyelitis
Hx MRSA POS WD infection : s/p debrided callus last Sunday03/10/24 from plantar surface
-MRI foot report as above
-ID following based on previous history of isolation of Staph aureus organism, patient being maintained on vancomycin
-Lower ext art doppler normal and did not show any critical narrowing.
-Podiatry planning to take patient to OR today
2. DM2 with hyperglycemia
- hyperglycemia in setting of acute infection
- A1c 7.3%, previously 11.3% 6 months ago
- c/w Metformin
- No longer on Lantus
- add Low SSI
3. Essential hypertension
-continue lisinopril
- add IV Hydralazine PRN > SBL 165. DBP > 110
4. Chronic normocytic anemia -unclear etiology
DVT ppx: Lovenox
Code: Full
Anticipated Discharge: 24 - 48 hours
Subjective/Interval History
-
Date of Service: March 20, 2024
No complaints overnight
Remains afebrile
Objective Data
-
Labs:
Laboratory Results
03/20/24
06:09
WBC 3.9 L
Hgb 12.4 L
Hct 36.6 L
Plt Count 368
Sodium 141
Potassium 4.7
Chloride 103
Carbon Dioxide 26
BUN 28 H
Creatinine 1.1
Glucose 152 H
Calcium 9.9
Vital Signs:
Vital Signs
Temp Pulse Resp BP Pulse Ox
98.5 F 56 16 112/62 98
03/20/24 07:30 03/20/24 09:54 03/20/24 07:30 03/20/24 09:54 03/20/24 08:24
I&O
03/19/24 03/20/24 03/21/24
06:59 06:59 06:59
Intake Total 1310 / 1310 1220 / 1220
Output Total 0 / 0
Balance 1310 / 1310 1220 / 1220
Review of Systems
-
Respiratory: Reports No Symptoms
Cardiac: Reports No Symptoms
Abdomen/GI: Reports No Symptoms
Physical Exam
-
General: No Apparent Distress and Comfortable
HEENT: Negative Oxygen
Respiratory: Clear to Auscultation
Cardiac: Regular Rhythm and S1/S2; Negative Murmur or Rub
GI: Soft, Nontender and Nondistended
Musculoskeletal: No Edema and Other (Left foot bandage)
Neuro: Awake, Alert, Oriented, No Motor Deficits and Nonfocal/Grossly Intact
Psych: Calm
[2024-03-20 15:05] LABS: Glucose - Point of Care 128 mg/dl (70-99)
--- NOTE | 2024-03-20 17:19 | W.PN.UPDATE ---
Update Note
Progress Note Update
Patient for TMA today left foot. Visible erosion of the 2,3 metatarsal heads noted intra operatively. Wound closed and drain inserted. Bone culture of 2nd metatarsal and clean margin of second metatarsal performed. Patient tolerated procedure
and anesthesia without complication and returned to recovery room with vital signs stable and neurovascular status in tact. Strict NWB for the next 24 hours and will pull the drain tomorrow.
[2024-03-20 17:23] LABS: Glucose - Point of Care 162 mg/dl (70-99)
[2024-03-20] MEDS: DILAUDID 0.25 MG IV (17:26)
[2024-03-20 21:05] LABS: Glucose - Point of Care 202 mg/dl (70-99)
[2024-03-20] MEDS: ZETIA 10 MG PO (21:09)
[2024-03-20] MEDS: CRESTOR 10 MG PO (21:09)
[2024-03-20] MEDS: LOVENOX SC (22:51)
[2024-03-21 00:10] VITALS: BP 107/52
[2024-03-21 03:13] VITALS: BP 106/51
[2024-03-21] MEDS: VANCOCIN 530 MG IV (06:20)
[2024-03-21 07:00] VITALS: BP 133/67
[2024-03-21 08:07] LABS: Hematocrit 32.4 % (39.0-52.0); Hemoglobin 11.2 g/dL (13.0-18.0); Mean Corp Hgb Conc. 34.6 g/dL (33.0-37.0); Mean Corpuscular Hgb 30.2 pg (27.0-31.0); Mean Corpuscular Volume 87.3 fL (80.0-94.0); Mean Platelet Volume 8.9 fL (7.4-10.4); Platelet Count 365 10^3/uL (130-400); Red Blood Cell Count 3.71 10^6/uL (4.70-6.10); Red Cell Dist. Width 11.9 % (11.5-14.5); White Blood Cell Count 6.1 10^3/uL (4.8-10.8)
[2024-03-21 08:33] LABS: Glucose - Point of Care 164 mg/dl (70-99)
[2024-03-21 08:39] LABS: Blood Urea Nitrogen 33 mg/dl (9-20); Carbon Dioxide 22 mmol/L (22-30); Chloride 103 mmol/L (98-107); Estimated Creatinine Clearance 86 ml/min; Glucose 180 mg/dl (70-99); Potassium 4.5 mmol/L (3.5-5.1); Sodium 141 mmol/L (135-145); eGFR > 60.00
[2024-03-21] MEDS: ZESTRIL 5 MG PO (08:52)
[2024-03-21] MEDS: NOVOLOG FLEXPEN-LOW RESISTANCE 1 UNITS SC ×2 (08:52→17:25)
[2024-03-21] MEDS: PROCARDIA XL (EXTENDED RELEASE) 30 MG PO (08:52)
[2024-03-21] MEDS: VITAMIN B-12 1000 MCG PO (08:53)
--- NOTE | 2024-03-21 09:50 | PHA.VAN.FU ---
Vancomycin Assessment / Plan
- Assessment
Renal Function: SCR Increasing (1.1>1.2)
WBC's are: Trending Up (3.9>6.1)
In the past 24 hrs, patient has been: Afebrile
- Dosing Plan
Continue: Vancomycin 1500mg IV Q24hr
- Monitoring Plan
No level(s) ordered at this time: Will order levels according to vancomycin dosing protocol
Level(s) appropriate: Repeat sooner for changes in renal function or clinical status
- Follow Up
Pharmacy will continue to follow.
Vancomycin Follow UP
- -
Patient Age: 48
Patient Sex: Male
Vancomycin Day #: 5
Indication: Skin And Soft Tissue
Requesting Provider: Elmira Lyman / Dr. Ellis
Pertinent Antimicrobial Allergies:
NKDA
Height / Weight:
Height 6 ft 2 in
Actual Weight 102.058 kg
Pertinent Past Medical History: DM, L toe amputation 04/27
- Vital Signs / Lab Results
Temp Pulse Resp BP Pulse Ox
98.1 F 54 16 133/67 99
03/21/24 07:00 03/21/24 07:00 03/21/24 07:00 03/21/24 07:00 03/21/24 07:00
Lab Results - Hematology
03/19/24 03/20/24 03/21/24
07:18 06:09 07:00
WBC 3.5 L 3.9 L 6.1
Lab Results - Chemistry
03/19/24 03/20/24 03/21/24
07:18 06:09 07:00
BUN 28 H 28 H 33 H
Creatinine 1.1 1.1 1.2
Estimated Creat Clear 93 93 86
Microbiology Results
03/17/24 17:18 Anaerobic Culture - Preliminary
Foot - Left Culture pending. Anaerobic cultures are examined after 3
days incubation. Additional information to follow.
03/17/24 17:18 Wound Culture - Preliminary
Foot - Left Gram Stain - Preliminary
Therapeutic Drug Monitoring
Vancomycin Peak 25.3 ug/ml (18-26) 03/19/24 21:39
Vancomycin Trough 16.3 ug/ml (5-20) 03/20/24 06:08
--- NOTE | 2024-03-21 10:21 | W.PN.ID1 ---
Date of Service
Date of Service: March 21, 2024
Today's Communication
Continue antibiotics.
Assessment / Plan
Osteomyelitis of 2nd metatarsal/phalanx, head of 3rd metatarsal/phalanx, 2nd/3rd MTP joints
- Suspected relapse vs new infection
H/o Osteomyelitis due to MSSA
Diabetic Foot Infection
DM2
Recommendations:
Aerobic and anaerobic cultures of the wound done - gram stain few GPCs, culture mixed aleksandr
Continue with vancomycin for the present.
Intraoperative cultures have been obtained; will await further results to guide antimicrobial selection and potential de-escalation.
Await pathology
����������������������������������������������������������
Chief Complaint
-: Other (Left foot osteomyelitis)
Subjective / Review of Systems
Patient seen and examined. Reports no issues. Denies fevers or chills. Denies pain.
Vital Signs / Physical Exam
Vital Signs
Vital Signs
Temp Pulse Resp BP Pulse Ox
98.1 F 54 16 133/67 99
03/21/24 07:00 03/21/24 07:00 03/21/24 07:00 03/21/24 07:00 03/21/24 07:00
Physical Exam
Constitutional: No Acute Distress, Comfortable and Non-toxic
Eyes: Sclera Anicteric
Cardiovascular: Regular Rate and S1/S2; Negative Murmur or Rub
Pulmonary: Clear and Symmetric; Negative Wheezes or Rales
Gastrointestinal: Soft, Non Tender, Non Distended and Normal Bowel Sounds
Skin: Warm and Dry; Negative Rash or Jaundice
Wound: Other (Left foot dressed and wrapped in Elliot wrap. No erythema extending up leg.)
Neurological: Awake and Alert
Psychological: Calm
Objective Data
Lab Data
Lab Results
03/21/24 07:00
03/21/24 07:00
ESR 64 mm/hour (0-20) H 03/17/24 13:12
Estimated Creat Clear 86 ml/min 03/21/24 07:00
Total Bilirubin 0.7 mg/dl (0.2-1.3) 03/17/24 13:12
AST 24 U/L (17-59) 03/17/24 13:12
ALT 18 U/L (0-50) 03/17/24 13:12
Alkaline Phosphatase 60 U/L (38-126) 03/17/24 13:12
C-Reactive Protein 42.90 mg/L (0.0-10.00) H 03/17/24 13:12
Most recent labs reviewed.
Micro Results:
03/20/24 17:05 Tissue Culture - Pending
Foot - Left Gram Stain - Pending
03/17/24 17:18 Anaerobic Culture - Preliminary
Foot - Left Culture pending. Anaerobic cultures are examined after 3
days incubation. Additional information to follow.
03/20/24 09:00 MRSA Screen - Pending
Nose
03/17/24 17:18 Wound Culture - Preliminary
Foot - Left Gram Stain - Preliminary
Imaging:
03/20/2024 X-ray left foot: There has been a transmetatarsal amputation of all 5 metatarsals. There is a surgical drain in the dorsal soft tissues of the left foot which extends distally over the site of amputation. There is a large amount of soft
tissue swelling throughout the mid foot.
[2024-03-21 11:00] VITALS: BP 140/75
[2024-03-21 12:35] LABS: Glucose - Point of Care 144 mg/dl (70-99)
[2024-03-21] MEDS: NOVOLOG FLEXPEN-LOW RESISTANCE SC (12:39)
--- NOTE | 2024-03-21 13:09 | W.PN.UPDATE ---
Update Note
Progress Note Update
Patient is one day status post left TMA. Dressing removed, drain in place and sutures in tact. No malodor, edema or erythema present. Skin color and turgor at the surgical site normal. Sterile dressing re applied. Await OR bone culture and bone
clean margin results to determine out patient antibiotic therapy as MRI suggested osteomyelitis extending along the entire second metatarsal shaft. Intraoperative appearance of remaining metatarsal showed normal bone bleeding with no necrosis.
Patient is afebrile but blood glucose elevated today. Will order surgical shoe for transfer but PT will be needed for training on knee scooter if possible. Excellent general appearance. Plan to pull drain during dressing change tomorrow.
[2024-03-21 15:00] VITALS: BP 146/77
--- NOTE | 2024-03-21 16:03 | W.PN.HOSP.TC ---
Today's Communication/Plan
-
see note
Assessment / Plan
Assessment / Plan
LLE MRI
Acute osteomyelitis involving the entire second metatarsal, the majority of the second proximal phalanx, the head of the third metatarsal, and the third proximal phalanx with osseous destructive changes of osteomyelitis/septic arthritis centered at
the second and third metatarsophalangeal joints. Large plantar soft tissue wounds. Chronic dorsal dislocations of the second and third metatarsophalangeal joints.
1. Left diabetic foot infection and osteomyelitis
Hx MRSA POS WD infection : s/p debrided callus last Sunday03/10/24 from plantar surface
-MRI foot report as above
-ID following based on previous history of isolation of Staph aureus organism, patient being maintained on vancomycin
-Lower ext art doppler normal and did not show any critical narrowing.
-s/p TMA on 03/20 . await culture data on intraop samples
-Pods planning to f/u and remove chin drain today
-NWB on Left foot currently
2. DM2 with hyperglycemia
- hyperglycemia in setting of acute infection
- A1c 7.3%, previously 11.3% 6 months ago
- c/w Metformin
- No longer on Lantus
- add Low SSI
3. Essential hypertension
-continue lisinopril
- add IV Hydralazine PRN > SBL 165. DBP > 110
4. Chronic normocytic anemia -unclear etiology
DVT ppx: Lovenox
Code: Full
Anticipated Discharge: > 48 hours
Subjective/Interval History
-
Date of Service: March 21, 2024
no complains overnight
aferbrile
Objective Data
-
Labs:
Laboratory Results
03/21/24
07:00
WBC 6.1
Hgb 11.2 L
Hct 32.4 L
Plt Count 365
Sodium 141
Potassium 4.5
Chloride 103
Carbon Dioxide 22
BUN 33 H
Creatinine 1.2
Glucose 180 H
Calcium 9.0
Vital Signs:
Vital Signs
Temp Pulse Resp BP Pulse Ox
97.9 F 57 18 140/75 99
03/21/24 11:00 03/21/24 11:00 03/21/24 11:00 03/21/24 11:00 03/21/24 11:00
I&O
03/20/24 03/21/24 03/22/24
06:59 06:59 06:59
Intake Total 1220 / 1220 150 / 150 240 / 240
Output Total 450 / 450 300 / 300
Balance 1220 / 1220 -300 / -300 -60 / -60
Review of Systems
-
Respiratory: Reports No Symptoms
Cardiac: Reports No Symptoms
Abdomen/GI: Reports No Symptoms
Physical Exam
-
General: No Apparent Distress and Comfortable
HEENT: Negative Oxygen
Respiratory: Clear to Auscultation
Cardiac: Regular Rhythm and S1/S2; Negative Murmur or Rub
GI: Soft, Nontender and Nondistended
Musculoskeletal: No Edema and Other (Left foot bandage)
Neuro: Awake, Alert, Oriented, No Motor Deficits and Nonfocal/Grossly Intact
Psych: Calm
[2024-03-21 16:52] LABS: Glucose - Point of Care 183 mg/dl (70-99)
[2024-03-21 21:16] LABS: Glucose - Point of Care 149 mg/dl (70-99)
[2024-03-21] MEDS: ZETIA 10 MG PO (21:34)
[2024-03-21] MEDS: CRESTOR 10 MG PO (21:34)
[2024-03-21 23:00] VITALS: BP 128/70
[2024-03-22] MEDS: VANCOCIN 530 MG IV (06:06)
[2024-03-22 07:59] LABS: Hemoglobin 10.9 g/dL (13.0-18.0); Mean Corp Hgb Conc. 34.1 g/dL (33.0-37.0); Mean Corpuscular Hgb 30.2 pg (27.0-31.0); Mean Corpuscular Volume 88.6 fL (80.0-94.0); Mean Platelet Volume 8.9 fL (7.4-10.4); Platelet Count 333 10^3/uL (130-400); Red Blood Cell Count 3.61 10^6/uL (4.70-6.10); Red Cell Dist. Width 11.9 % (11.5-14.5); White Blood Cell Count 6.7 10^3/uL (4.8-10.8)
[2024-03-22 08:26] LABS: Blood Urea Nitrogen 29 mg/dl (9-20); Carbon Dioxide 26 mmol/L (22-30); Chloride 104 mmol/L (98-107); Estimated Creatinine Clearance 79 ml/min; Glucose 152 mg/dl (70-99); Potassium 4.7 mmol/L (3.5-5.1); Sodium 141 mmol/L (135-145); eGFR > 60.00
[2024-03-22 08:55] VITALS: BP 141/83
[2024-03-22] MEDS: VITAMIN B-12 1000 MCG PO (08:57)
[2024-03-22] MEDS: PROCARDIA XL (EXTENDED RELEASE) 30 MG PO (08:59)
[2024-03-22] MEDS: ZESTRIL 5 MG PO (08:59)
[2024-03-22] MEDS: NOVOLOG FLEXPEN-LOW RESISTANCE 1 UNITS SC (09:01)
[2024-03-22 09:03] LABS: Glucose - Point of Care 150 mg/dl (70-99)
--- NOTE | 2024-03-22 09:33 | W.PN.POD ---
Today's Communication
Today's Communication
Mark drain removed
Await intra operative bone culture results
Assessment / Plan
-
Left foot diabetic infected ulcer probing to bone. Osteomyelitis 2,3 metatarsals and 2,3 proximal phalanx as well as septic arthritis as per MRI
-Post op day #2 Transmetatarsal amputation left foot.
-Excellent appearance as skin color and turgor are normal. No dehiscence and no drainage. [place] drain removed.
-Can now shift weight to heel for transfer to chair. Contacted PT and will train with walker and wedge surgical shoe Sunday
-Await intraoperative cultures for outpatient antibiotic planning. All compromised tissue removed however MR shows possible involvement of the entire second metatarsal. Await bone culture results
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
Diabetes with peripheral neuropathy
-recent HgbA1c 7.3%
Essential Hypertension
Subjective
Chief Complaint
Admitted for left foot osteomyelitis with open ulcer.
Subjective
Patient resting in bed comfortably with no complaints
Objective
Temp Pulse Resp BP Pulse Ox
98.5 F 60 17 141/83 97
03/22/24 08:55 03/22/24 08:59 03/22/24 08:55 03/22/24 08:59 03/22/24 08:55
03/22/24 07:15
03/22/24 07:15
Vital Signs and Lab results were reviewed.
Review of Systems
Review of Systems
Review of Systems: No Fever and Chills
Physical Exam
Physical Exam
Skin: Warm and Dry
Vascular: Capillary Refill Intact
Dorsalis Pedis: Intact
Posterior Tibialis: Intact
Sutures and drain in tact. No dehiscence or malodor noted. Skin edges with good perfusion
--- NOTE | 2024-03-22 10:36 | PHA.VAN.FU ---
Vancomycin Assessment / Plan
- Assessment
Renal Function: SCR Increasing (1.1->1.2->1.3)
WBC's are: WNL
In the past 24 hrs, patient has been: Afebrile
- Dosing Plan
Continue: Vancomycin 1500 mg q24h - dose adjusted 03/20
- Monitoring Plan
Peak Level: 03/23 0900 after 4th q24h dose
Trough Level: 03/24 0530
- Follow Up
Pharmacy will continue to follow.
Vancomycin Follow UP
- -
Patient Age: 48
Patient Sex: Male
Vancomycin Day #: 6
Indication: Skin And Soft Tissue
Requesting Provider: Elmira Lyman / Dr. Ellis
Pertinent Antimicrobial Allergies:
NKDA
Height / Weight:
Height 6 ft 2 in
Actual Weight 102.058 kg
Pertinent Past Medical History: DM, L toe amputation 04/27
- Vital Signs / Lab Results
Temp Pulse Resp BP Pulse Ox
98.5 F 60 17 141/83 97
03/22/24 08:55 03/22/24 08:59 03/22/24 08:55 03/22/24 08:59 03/22/24 08:55
Lab Results - Hematology
03/20/24 03/21/24 03/22/24
06:09 07:00 07:15
WBC 3.9 L 6.1 6.7
Lab Results - Chemistry
03/20/24 03/21/24 03/22/24
06:09 07:00 07:15
BUN 28 H 33 H 29 H
Creatinine 1.1 1.2 1.3
Estimated Creat Clear 93 86 79
Microbiology Results
03/17/24 17:18 Wound Culture - Final
Foot - Left Gram Stain - Final
03/17/24 17:18 Anaerobic Culture - Final
Foot - Left NO ANAEROBES ISOLATED
03/20/24 17:05 Tissue Culture - Preliminary
Foot - Left No Growth After 18-24 Hours
Gram Stain - Preliminary
03/20/24 09:00 MRSA Screen - Final
Nose No Methicillin Resistant Staphylococcus aureus isolated.
Therapeutic Drug Monitoring
Vancomycin Peak 25.3 ug/ml (18-26) 03/19/24 21:39
Vancomycin Trough 16.3 ug/ml (5-20) 03/20/24 06:08
[2024-03-22 12:55] LABS: Glucose - Point of Care 177 mg/dl (70-99)
[2024-03-22] MEDS: NOVOLOG FLEXPEN-LOW RESISTANCE SC (13:25)
[2024-03-22 15:00] VITALS: BP 132/72
--- NOTE | 2024-03-22 15:24 | W.PN.HOSP.TC ---
Today's Communication/Plan
-
await inraop final cs report
continue other care
Assessment / Plan
Assessment / Plan
LLE MRI
Acute osteomyelitis involving the entire second metatarsal, the majority of the second proximal phalanx, the head of the third metatarsal, and the third proximal phalanx with osseous destructive changes of osteomyelitis/septic arthritis centered at
the second and third metatarsophalangeal joints. Large plantar soft tissue wounds. Chronic dorsal dislocations of the second and third metatarsophalangeal joints.
1. Left diabetic foot infection and osteomyelitis
Hx MRSA POS WD infection : s/p debrided callus last Sunday03/10/24 from plantar surface
-MRI foot report as above
-ID following based on previous history of isolation of Staph aureus organism, patient being maintained on vancomycin
-Lower ext art doppler normal and did not show any critical narrowing.
-s/p TMA on 03/20 . await culture data on intraop samples
-Pods f/ued and removed drain. getting wound care.
-NWB on Left foot currently
2. DM2 with hyperglycemia
- hyperglycemia in setting of acute infection
- A1c 7.3%, previously 11.3% 6 months ago
- c/w Metformin
- No longer on Lantus
- add Low SSI
3. Essential hypertension
-continue lisinopril
-Added procardia to regimen
- add IV Hydralazine PRN > SBL 165. DBP > 110
4. Chronic normocytic anemia
-unclear etiology
DVT ppx: Lovenox
Code: Full
Anticipated Discharge: > 48 hours
Subjective/Interval History
-
Date of Service: March 22, 2024
No reported issues overnight
Objective Data
-
Labs:
Laboratory Results
03/22/24
07:15
WBC 6.7
Hgb 10.9 L
Hct 32.0 L
Plt Count 333
Sodium 141
Potassium 4.7
Chloride 104
Carbon Dioxide 26
BUN 29 H
Creatinine 1.3
Glucose 152 H
Calcium 9.0
Vital Signs:
Vital Signs
Temp Pulse Resp BP Pulse Ox
98.5 F 60 17 141/83 97
03/22/24 08:55 03/22/24 08:59 03/22/24 08:55 03/22/24 08:59 03/22/24 08:55
I&O
03/21/24 03/22/24 03/23/24
06:59 06:59 06:59
Intake Total 150 / 150 480 / 480
Output Total 450 / 450 4350 / 4350
Balance -300 / -300 -3870 / -3870
Review of Systems
-
Respiratory: Reports No Symptoms
Cardiac: Reports No Symptoms
Abdomen/GI: Reports No Symptoms
Physical Exam
-
General: No Apparent Distress and Comfortable
HEENT: Negative Oxygen
Respiratory: Clear to Auscultation
Cardiac: Regular Rhythm and S1/S2; Negative Murmur or Rub
GI: Soft, Nontender and Nondistended
Musculoskeletal: No Edema and Other (Left foot bandage)
Neuro: Awake, Alert, Oriented, No Motor Deficits and Nonfocal/Grossly Intact
Psych: Calm
--- NOTE | 2024-03-22 15:58 | CHAP ---
Chepe was gracious and welcoming, in good spirits. He is accepting and peaceful, no complaints, grateful to God for taking good care of him. Emotional and spiritual support provided.
[2024-03-22 16:03] VITALS: BP 132/72; PULSE 65; O2SAT 97
[2024-03-22 17:01] LABS: Glucose - Point of Care 205 mg/dl (70-99)
[2024-03-22] MEDS: NOVOLOG FLEXPEN-LOW RESISTANCE 2 UNITS SC (17:15)
[2024-03-22] MEDS: CRESTOR 10 MG PO (20:26)
[2024-03-22] MEDS: ZETIA 10 MG PO (20:26)
[2024-03-22 22:42] LABS: Glucose - Point of Care 131 mg/dl (70-99)
[2024-03-22 23:43] VITALS: BP 120/72
[2024-03-23] MEDS: VANCOCIN 530 MG IV (05:51)
[2024-03-23 06:54] VITALS: BP 121/68
[2024-03-23] MEDS: NOVOLOG FLEXPEN-LOW RESISTANCE SC ×2 (07:54→17:10)
[2024-03-23] MEDS: VITAMIN B-12 1000 MCG PO (07:54)
[2024-03-23] MEDS: PROCARDIA XL (EXTENDED RELEASE) 30 MG PO (07:54)
[2024-03-23] MEDS: ZESTRIL 5 MG PO (07:54)
[2024-03-23 08:54] LABS: Glucose - Point of Care 155 mg/dl (70-99)
[2024-03-23 09:05] LABS: Hemoglobin 11.7 g/dL (13.0-18.0); Mean Corp Hgb Conc. 33.4 g/dL (33.0-37.0); Mean Corpuscular Hgb 29.7 pg (27.0-31.0); Mean Corpuscular Volume 88.8 fL (80.0-94.0); Mean Platelet Volume 8.6 fL (7.4-10.4); Platelet Count 323 10^3/uL (130-400); Red Blood Cell Count 3.94 10^6/uL (4.70-6.10); Red Cell Dist. Width 11.9 % (11.5-14.5)
[2024-03-23 09:18] LABS: Blood Urea Nitrogen 29 mg/dl (9-20); Calcium 9.2 mg/dl (8.4-10.2); Carbon Dioxide 26 mmol/L (22-30); Chloride 104 mmol/L (98-107); Estimated Creatinine Clearance 93 ml/min; Glucose 165 mg/dl (70-99); Potassium 4.6 mmol/L (3.5-5.1); Sodium 143 mmol/L (135-145); eGFR > 60.00
--- NOTE | 2024-03-23 09:34 | PHA.VAN.FU ---
Vancomycin Assessment / Plan
- Assessment
Renal Function: SCR Decreasing (1.3->1.1)
WBC's are: Trending Down
In the past 24 hrs, patient has been: Afebrile
Concomitant Antimicrobials: none
- Assessment - Therapeutic Drug Monitoring
Extrapolated Cmax (mcg/mL): vanc peak 03/23 08:54 =23
vanc trough still pending for 03/24
- Monitoring Plan
Trough Level: 03/24 530
- Follow Up
Pharmacy will continue to follow.
Vancomycin Follow UP
- -
Patient Age: 48
Patient Sex: Male
Vancomycin Day #: 7
Indication: Skin And Soft Tissue
Requesting Provider: Elmira Lyman / Dr. Ellis
Pertinent Antimicrobial Allergies:
NKDA
Height / Weight:
Height 6 ft 2 in
Actual Weight 102.058 kg
Pertinent Past Medical History: DM, L toe amputation 04/27
- Vital Signs / Lab Results
Temp Pulse Resp BP Pulse Ox
98.9 F 53 16 121/68 97
03/23/24 06:54 03/23/24 07:54 03/23/24 06:54 03/23/24 07:54 03/23/24 06:54
Lab Results - Hematology
03/21/24 03/22/24 03/23/24
07:00 07:15 08:54
WBC 6.1 6.7 4.0 L
Lab Results - Chemistry
03/21/24 03/22/24 03/23/24
07:00 07:15 08:54
BUN 33 H 29 H 29 H
Creatinine 1.2 1.3 1.1
Estimated Creat Clear 86 79 93
Microbiology Results
03/17/24 17:18 Wound Culture - Final
Foot - Left Gram Stain - Final
03/17/24 17:18 Anaerobic Culture - Final
Foot - Left NO ANAEROBES ISOLATED
03/20/24 17:05 Tissue Culture - Preliminary
Foot - Left No Growth After 18-24 Hours
Gram Stain - Preliminary
03/20/24 09:00 MRSA Screen - Final
Nose No Methicillin Resistant Staphylococcus aureus isolated.
Therapeutic Drug Monitoring
Vancomycin Peak 23.0 ug/ml (18-26) 03/23/24 08:54
Vancomycin Trough 16.3 ug/ml (5-20) 03/20/24 06:08
--- NOTE | 2024-03-23 10:36 | PTCARENOTE ---
Assumed care of pt from previous nurse. Pt denies pain. Dressing to left lower extremity cdi. Pt call jesus is within reach, pt rings melanie. will cont to monitor.
--- NOTE | 2024-03-23 12:35 | W.PN.ID1 ---
Date of Service
Date of Service: March 23, 2024
Today's Communication
Continue Vancomycin.
Assessment / Plan
Osteomyelitis of 2nd metatarsal/phalanx, head of 3rd metatarsal/phalanx, 2nd/3rd MTP joints
- Suspected relapse vs new infection
H/o Osteomyelitis due to MSSA
Diabetic Foot Infection
DM2
Recommendations:
Aerobic and anaerobic cultures of the wound done - gram stain few GPCs, culture mixed aleksandr
03/20 s/p left foot TMA
Continue with vancomycin for the present.
Intraoperative cultures negative to date.
Await pathology to assess for surgical cure. (MRI: osteo involving the entire second metatarsal)
����������������������������������������������������������
Chief Complaint
-: Other (Left foot osteomyelitis)
Subjective / Review of Systems
Feels well.
Vital Signs / Physical Exam
Vital Signs
Vital Signs
Temp Pulse Resp BP Pulse Ox
98.9 F 53 16 121/68 97
03/23/24 06:54 03/23/24 07:54 03/23/24 06:54 03/23/24 07:54 03/23/24 08:00
Physical Exam
Constitutional: No Acute Distress and Comfortable
Pulmonary: Clear
Gastrointestinal: Soft, Non Tender and Non Distended
Wound: Other (left foot dressing dry)
Neurological: AO x 3
Objective Data
Lab Data
Lab Results
03/23/24 08:54
03/23/24 08:54
ESR 64 mm/hour (0-20) H 03/17/24 13:12
Estimated Creat Clear 93 ml/min 03/23/24 08:54
Total Bilirubin 0.7 mg/dl (0.2-1.3) 03/17/24 13:12
AST 24 U/L (17-59) 03/17/24 13:12
ALT 18 U/L (0-50) 03/17/24 13:12
Alkaline Phosphatase 60 U/L (38-126) 03/17/24 13:12
C-Reactive Protein 42.90 mg/L (0.0-10.00) H 03/17/24 13:12
Most recent labs reviewed.
Micro Results:
03/17/24 17:18 Wound Culture - Final
Foot - Left Gram Stain - Final
03/17/24 17:18 Anaerobic Culture - Final
Foot - Left NO ANAEROBES ISOLATED
03/20/24 17:05 Tissue Culture - Preliminary
Foot - Left No Growth After 18-24 Hours
Gram Stain - Preliminary
03/20/24 09:00 MRSA Screen - Final
Nose No Methicillin Resistant Staphylococcus aureus isolated.
Imaging:
03/20/2024 X-ray left foot: There has been a transmetatarsal amputation of all 5 metatarsals. There is a surgical drain in the dorsal soft tissues of the left foot which extends distally over the site of amputation. There is a large amount of soft
tissue swelling throughout the mid foot.
Care Review
Plan reviewed with: Physician (Dr. Irish Centeno)
[2024-03-23 12:50] LABS: Glucose - Point of Care 186 mg/dl (70-99)
--- NOTE | 2024-03-23 13:52 | W.PN.HOSP.TC ---
Today's Communication/Plan
-
follow bone biopsy report
abx per ID
Assessment / Plan
Assessment / Plan
LLE MRI
Acute osteomyelitis involving the entire second metatarsal, the majority of the second proximal phalanx, the head of the third metatarsal, and the third proximal phalanx with osseous destructive changes of osteomyelitis/septic arthritis centered at
the second and third metatarsophalangeal joints. Large plantar soft tissue wounds. Chronic dorsal dislocations of the second and third metatarsophalangeal joints.
1. Left diabetic foot infection and osteomyelitis
Hx MRSA POS WD infection : s/p debrided callus last Sunday03/10/24 from plantar surface
-MRI foot report as above
-Lower ext art doppler normal and did not show any critical narrowing.
-s/p TMA on 03/20 . Intraoperative better culture negative. Bone biopsy report pending.
-Pods f/ued and removed drain. getting wound care.
-NWB on Left foot currently
-ID managing antibiotics, currently on vancomycin.
2. DM2 with hyperglycemia
- hyperglycemia in setting of acute infection
- A1c 7.3%, previously 11.3% 6 months ago
- c/w Metformin
- No longer on Lantus
- add Low SSI
3. Essential hypertension
-continue lisinopril
-Added procardia to regimen
- add IV Hydralazine PRN > SBL 165. DBP > 110
4. Chronic normocytic anemia
-unclear etiology
DVT ppx: Lovenox
Code: Full
Anticipated Discharge: 24 - 48 hours
Subjective/Interval History
-
Date of Service: March 23, 2024
Afebrile overnight
No complaints
Objective Data
-
Labs:
Laboratory Results
03/23/24
08:54
WBC 4.0 L
Hgb 11.7 L
Hct 35.0 L
Plt Count 323
Sodium 143
Potassium 4.6
Chloride 104
Carbon Dioxide 26
BUN 29 H
Creatinine 1.1
Glucose 165 H
Calcium 9.2
Vital Signs:
Vital Signs
Temp Pulse Resp BP Pulse Ox
98.9 F 53 16 121/68 97
03/23/24 06:54 03/23/24 07:54 03/23/24 06:54 03/23/24 07:54 03/23/24 08:00
I&O
03/22/24 03/23/24 03/24/24
06:59 06:59 06:59
Intake Total 480 / 480 960 / 960 260 / 260
Output Total 4350 / 4350 1725 / 1725 850 / 850
Balance -3870 / -3870 -765 / -765 -590 / -590
Review of Systems
-
Respiratory: Reports No Symptoms
Cardiac: Reports No Symptoms
Abdomen/GI: Reports No Symptoms
Physical Exam
-
General: No Apparent Distress and Comfortable
HEENT: Negative Oxygen
Respiratory: Clear to Auscultation
Cardiac: Regular Rhythm and S1/S2; Negative Murmur or Rub
GI: Soft, Nontender and Nondistended
Musculoskeletal: No Edema and Other (Left foot bandage)
Neuro: Awake, Alert, Oriented, No Motor Deficits and Nonfocal/Grossly Intact
Psych: Calm
[2024-03-23] MEDS: NOVOLOG FLEXPEN-LOW RESISTANCE 1 UNITS SC (14:03)
[2024-03-23 15:02] VITALS: BP 119/68
[2024-03-23 17:09] LABS: Glucose - Point of Care 147 mg/dl (70-99)
[2024-03-23] MEDS: ZETIA 10 MG PO (21:17)
[2024-03-23] MEDS: CRESTOR 10 MG PO (21:18)
[2024-03-23 21:26] LABS: Glucose - Point of Care 144 mg/dl (70-99)
[2024-03-23 23:10] VITALS: BP 136/79
[2024-03-24 07:03] LABS: Vancomycin Trough 6.9 ug/ml (5-20)
[2024-03-24] MEDS: VANCOCIN 530 MG IV (07:52)
[2024-03-24 07:54] LABS: Glucose - Point of Care 173 mg/dl (70-99)
[2024-03-24 08:01] VITALS: BP 121/65
--- NOTE | 2024-03-24 08:12 | PHA.VAN.FU ---
Vancomycin Assessment / Plan
- Assessment
Renal Function: No New Labs Today
In the past 24 hrs, patient has been: Afebrile
- Assessment - Therapeutic Drug Monitoring
Extrapolated Cmax (mcg/mL): 25.1
Peak level was drawn: Appropriately (drawn ~1.6H after end of previous infusion)
Extrapolated Cmin (mcg/mL): 7.2
Trough Drawn: Appropriately
Levels were drawn: At steady state (levels drawn after 3rd dose of new regimen)
Calculated AUC (mcg*h/mL): 346
Calculated ke: 0.0556
Calculated half life (H): 12.5
Calculated Vd (L): 78
Calculated Vanc CL (ml/min): 72
- Dosing Plan
Adjust Regimen to: Vanc 1000mg Q12H starting at 1800
New Regimen Predicts: AUC (475), Peak (26.4), Trough (14.3)
Difficult case with borderline half-life
With Q12H interval may accumulate over time to supratherapeutic AUC / trough
With Q24H interval patient may remain with subtherapeutic AUC / trough
Will trial Vanc 1000mg Q12H (reduced from initial Vanc 1500mg Q12H dosing) for now but monitor levels as may eventually require transition back to Q24H interval
- Monitoring Plan
No level(s) ordered at this time: consider repeat levels later this week
- Follow Up
Pharmacy will continue to follow.
Vancomycin Follow UP
- -
Patient Age: 48
Patient Sex: Male
Vancomycin Day #: 8
Indication: Skin And Soft Tissue
Requesting Provider: Elmira Lmyan / Dr. Ellis
Pertinent Antimicrobial Allergies:
NKDA
Height / Weight:
Height 6 ft 2 in
Actual Weight 102.058 kg
Pertinent Past Medical History: DM, L toe amputation 04/27
- Vital Signs / Lab Results
Temp Pulse Resp BP Pulse Ox
99.0 F 59 18 121/65 95
03/24/24 08:01 03/24/24 08:01 03/24/24 08:01 03/24/24 08:01 03/24/24 08:01
Lab Results - Hematology
03/22/24 03/23/24
07:15 08:54
WBC 6.7 4.0 L
Lab Results - Chemistry
03/21/24 03/22/24 03/23/24
07:00 07:15 08:54
BUN 33 H 29 H 29 H
Creatinine 1.2 1.3 1.1
Estimated Creat Clear 86 79 93
Microbiology Results
03/20/24 17:05 Tissue Culture - Preliminary
Foot - Left No Growth After 48 Hours
Gram Stain - Preliminary
03/17/24 17:18 Wound Culture - Final
Foot - Left Gram Stain - Final
03/17/24 17:18 Anaerobic Culture - Final
Foot - Left NO ANAEROBES ISOLATED
Therapeutic Drug Monitoring
Vancomycin Peak 23.0 ug/ml (18-26) 03/23/24 08:54
Vancomycin Trough 6.9 ug/ml (5-20) 03/24/24 06:34
[2024-03-24] MEDS: NOVOLOG FLEXPEN-LOW RESISTANCE 1 UNITS SC ×2 (08:42→13:20)
[2024-03-24] MEDS: ZESTRIL 5 MG PO (08:43)
[2024-03-24] MEDS: PROCARDIA XL (EXTENDED RELEASE) 30 MG PO (08:43)
[2024-03-24] MEDS: VITAMIN B-12 1000 MCG PO (08:43)
--- NOTE | 2024-03-24 09:50 | W.PN.POD ---
Today's Communication
Today's Communication
Clinically stable
Bone culture shows no growth
Await bone pathology
Assessment / Plan
-
Left foot diabetic infected ulcer probing to bone. Osteomyelitis 2,3 metatarsals and 2,3 proximal phalanx as well as septic arthritis as per MRI
-Post op Transmetatarsal amputation left foot.
-Excellent appearance as skin color and turgor are normal. No dehiscence and no drainage.
-Can now shift weight to heel for transfer to chair. Contacted PT and will train with walker and wedge surgical shoe
-intraoperative culture shows no growth. Await pathology of clean margin as MRI showed acute osteomyelitis of the entire 2nd metatarsal. Defer to ID to determine outpatient antibiotic therapy
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
Diabetes with peripheral neuropathy
-recent HgbA1c 7.3%
Essential Hypertension
Subjective
Objective
Temp Pulse Resp BP Pulse Ox
99.0 F 59 18 121/65 95
03/24/24 08:01 03/24/24 08:43 03/24/24 08:01 03/24/24 08:43 03/24/24 08:01
03/23/24 08:54
03/23/24 08:54
Vital Signs and Lab results were reviewed.
Review of Systems
Review of Systems
Review of Systems: No Fever and No Chills
Physical Exam
Physical Exam
No edema or erythema present. Skin with normal color and turgor. Sutures in tact with no drainage
--- NOTE | 2024-03-24 10:52 | W.PN.ID1 ---
Date of Service
Date of Service: March 24, 2024
Today's Communication
Continue with vancomycin
Awaiting pathology - spoke with path- anticipated tomorrow - low threshold to plan course of home IV antibiotics
Assessment / Plan
Osteomyelitis of 2nd metatarsal/phalanx, head of 3rd metatarsal/phalanx, 2nd/3rd MTP joints
- Suspected relapse
H/o Osteomyelitis due to MSSA
Diabetic Foot Infection
DM2
Recommendations:
03/17 Aerobic and anaerobic cultures of the wound done - gram stain few GPCs, culture mixed aleksandr
03/20 s/p left foot TMA
03/20 OR tissue culture: gram stain negative and no growth to date
Pathology pending
Continue with vancomycin
Awaiting pathology - spoke with path- anticipated tomorrow - low threshold to plan course of home IV antibiotics
����������������������������������������������������������
Chief Complaint
-: Other (Left foot osteomyelitis)
Subjective / Review of Systems
remains afebrile
bp stable
discussed with patient
Vital Signs / Physical Exam
Vital Signs
Vital Signs
Temp Pulse Resp BP Pulse Ox
99.0 F 59 18 121/65 95
03/24/24 08:01 03/24/24 08:43 03/24/24 08:01 03/24/24 08:43 03/24/24 08:01
Physical Exam
Constitutional: No Acute Distress
Cardiovascular: Regular Rate and S1/S2; Negative Murmur or Rub
Pulmonary: Clear and Symmetric; Negative Wheezes or Rales
Gastrointestinal: Soft, Non Tender, Non Distended and Normal Bowel Sounds
Skin: Warm and Dry; Negative Rash or Jaundice
Wound: Other (dressing clean, dry, intact)
Objective Data
Lab Data
Lab Results
03/23/24 08:54
03/23/24 08:54
ESR 64 mm/hour (0-20) H 03/17/24 13:12
Estimated Creat Clear 93 ml/min 03/23/24 08:54
Total Bilirubin 0.7 mg/dl (0.2-1.3) 03/17/24 13:12
AST 24 U/L (17-59) 03/17/24 13:12
ALT 18 U/L (0-50) 03/17/24 13:12
Alkaline Phosphatase 60 U/L (38-126) 03/17/24 13:12
C-Reactive Protein 42.90 mg/L (0.0-10.00) H 03/17/24 13:12
Most recent labs reviewed.
Micro Results:
03/20/24 17:05 Tissue Culture - Final
Foot - Left No Growth After 72 Hours
Gram Stain - Final
03/17/24 17:18 Wound Culture - Final
Foot - Left Gram Stain - Final
03/17/24 17:18 Anaerobic Culture - Final
Foot - Left NO ANAEROBES ISOLATED
03/20/24 09:00 MRSA Screen - Final
Nose No Methicillin Resistant Staphylococcus aureus isolated.
Imaging:
03/20/2024 X-ray left foot: There has been a transmetatarsal amputation of all 5 metatarsals. There is a surgical drain in the dorsal soft tissues of the left foot which extends distally over the site of amputation. There is a large amount of soft
tissue swelling throughout the mid foot.
Care Review
Plan reviewed with: Physician (Dr Centeno- leandra)
[2024-03-24 13:09] LABS: Glucose - Point of Care 153 mg/dl (70-99)
--- NOTE | 2024-03-24 15:06 | W.PN.HOSP.TC ---
Today's Communication/Plan
-
f/u Bone biopsy report
abx per ID
Assessment / Plan
Assessment / Plan
LLE MRI
Acute osteomyelitis involving the entire second metatarsal, the majority of the second proximal phalanx, the head of the third metatarsal, and the third proximal phalanx with osseous destructive changes of osteomyelitis/septic arthritis centered at
the second and third metatarsophalangeal joints. Large plantar soft tissue wounds. Chronic dorsal dislocations of the second and third metatarsophalangeal joints.
1. Left diabetic foot infection and osteomyelitis
Hx MRSA POS WD infection : s/p debrided callus last Sunday03/10/24 from plantar surface
-MRI foot report as above
-Lower ext art doppler normal and did not show any critical narrowing.
-s/p TMA on 03/20 . Intraoperative better culture negative. Bone biopsy report pending.
-Pods f/ued and removed drain. getting wound care.
-NWB on Left foot currently
-ID managing antibiotics, currently on vancomycin.
2. DM2 with hyperglycemia
- hyperglycemia in setting of acute infection
- A1c 7.3%, previously 11.3% 6 months ago
- c/w Metformin
- No longer on Lantus
- add Low SSI
3. Essential hypertension
-continue lisinopril
-Added procardia to regimen
- add IV Hydralazine PRN > SBL 165. DBP > 110
4. Chronic normocytic anemia
-unclear etiology
DVT ppx: Lovenox
Code: Full
Anticipated Discharge: 24 - 48 hours
Subjective/Interval History
-
Date of Service: March 24, 2024
No new issues overnight
Objective Data
-
Vital Signs:
Vital Signs
Temp Pulse Resp BP Pulse Ox
99.0 F 59 18 121/65 95
03/24/24 08:01 03/24/24 08:43 03/24/24 08:01 03/24/24 08:43 03/24/24 08:01
I&O
03/23/24 03/24/24 03/25/24
06:59 06:59 06:59
Intake Total 960 / 960 1220 / 1220
Output Total 1725 / 1725 850 / 850
Balance -765 / -765 370 / 370
Review of Systems
-
Respiratory: Reports No Symptoms
Cardiac: Reports No Symptoms
Abdomen/GI: Reports No Symptoms
Physical Exam
-
General: No Apparent Distress and Comfortable
HEENT: Negative Oxygen
Respiratory: Clear to Auscultation
Cardiac: Regular Rhythm and S1/S2; Negative Murmur or Rub
GI: Soft, Nontender and Nondistended
Musculoskeletal: No Edema and Other (Left foot bandage)
Neuro: Awake, Alert, Oriented, No Motor Deficits and Nonfocal/Grossly Intact
Psych: Calm
[2024-03-24 15:09] VITALS: BP 124/61
--- NOTE | 2024-03-24 16:19 | CM ---
CM reviewed chart, patient seen bedside with friend who assisted with translation. Patient reports history of home IV antibiotics in the past, aware may need home IV antibiotics upon discharge. PT recommending a bed side commode upon discharge.
Patient confirms he has a walker. CM will continue to follow for all discharge planning needs.
Plan; home, watch for home IV antibiotic needs, will need bed side commode upon discharge.
[2024-03-24 16:50] LABS: Glucose - Point of Care 214 mg/dl (70-99)
[2024-03-24] MEDS: NOVOLOG FLEXPEN-LOW RESISTANCE 2 UNITS SC (17:30)
[2024-03-24] MEDS: VANCOCIN 200 IV (17:31)
[2024-03-24 21:16] LABS: Glucose - Point of Care 150 mg/dl (70-99)
[2024-03-24] MEDS: CRESTOR 10 MG PO (21:55)
[2024-03-24] MEDS: ZETIA 10 MG PO (21:55)
[2024-03-24 23:05] VITALS: BP 113/62
[2024-03-25] MEDS: VANCOCIN 200 IV ×2 (05:14→17:19)
[2024-03-25 07:52] LABS: Glucose - Point of Care 204 mg/dl (70-99)
[2024-03-25 08:09] VITALS: BP 136/76
--- NOTE | 2024-03-25 08:23 | PHA.VAN.FU ---
Vancomycin Assessment / Plan
- Assessment
Renal Function: No New Labs Today
In the past 24 hrs, patient has been: Afebrile
- Dosing Plan
Continue: Vanc 1000mg Q12H (adjusted 03/24)
- Monitoring Plan
No level(s) ordered at this time: consider repeat levels following tomorrow's 1800 dose if remains admitted
- Follow Up
Pharmacy will continue to follow.
Vancomycin Follow UP
- -
Patient Age: 48
Patient Sex: Male
Vancomycin Day #: 9
Indication: Skin And Soft Tissue
Requesting Provider: Elmira Lyman / Dr. Ellis
Pertinent Antimicrobial Allergies:
NKDA
Height / Weight:
Height 6 ft 2 in
Actual Weight 102.058 kg
Pertinent Past Medical History: DM, L toe amputation 04/27
- Vital Signs / Lab Results
Temp Pulse Resp BP Pulse Ox
98.5 F 55 18 136/76 96
03/25/24 08:09 03/25/24 08:09 03/25/24 08:09 03/25/24 08:09 03/25/24 08:09
Lab Results - Hematology
03/23/24
08:54
WBC 4.0 L
Lab Results - Chemistry
03/22/24 03/23/24
07:15 08:54
BUN 29 H 29 H
Creatinine 1.3 1.1
Estimated Creat Clear 79 93
Microbiology Results
03/20/24 17:05 Tissue Culture - Final
Foot - Left No Growth After 72 Hours
Gram Stain - Final
Therapeutic Drug Monitoring
Vancomycin Peak 23.0 ug/ml (18-26) 03/23/24 08:54
Vancomycin Trough 6.9 ug/ml (5-20) 03/24/24 06:34
[2024-03-25] MEDS: ZESTRIL 5 MG PO (09:04)
[2024-03-25] MEDS: PROCARDIA XL (EXTENDED RELEASE) 30 MG PO (09:04)
[2024-03-25] MEDS: NOVOLOG FLEXPEN-LOW RESISTANCE 2 UNITS SC ×2 (09:04→12:47)
[2024-03-25] MEDS: VITAMIN B-12 1000 MCG PO (09:05)
[2024-03-25 12:44] LABS: Glucose - Point of Care 227 mg/dl (70-99)
[2024-03-25 12:53] LABS: Blood Urea Nitrogen 30 mg/dl (9-20); Calcium 9.4 mg/dl (8.4-10.2); Carbon Dioxide 24 mmol/L (22-30); Chloride 103 mmol/L (98-107); Estimated Creatinine Clearance 93 ml/min; Glucose 209 mg/dl (70-99); Potassium 4.5 mmol/L (3.5-5.1); Sodium 142 mmol/L (135-145); eGFR > 60.00
--- NOTE | 2024-03-25 14:57 | W.PN.HOSP.TC ---
Today's Communication/Plan
-
f/u bone path report
continue abx
Assessment / Plan
Assessment / Plan
LLE MRI
Acute osteomyelitis involving the entire second metatarsal, the majority of the second proximal phalanx, the head of the third metatarsal, and the third proximal phalanx with osseous destructive changes of osteomyelitis/septic arthritis centered at
the second and third metatarsophalangeal joints. Large plantar soft tissue wounds. Chronic dorsal dislocations of the second and third metatarsophalangeal joints.
1. Left diabetic foot infection and osteomyelitis
Hx MRSA POS WD infection : s/p debrided callus last Sunday03/10/24 from plantar surface
-MRI foot report as above
-Lower ext art doppler normal and did not show any critical narrowing.
-s/p TMA on 03/20 . Intraoperative better culture negative. Bone biopsy report pending.
-Pods f/ued and removed drain. getting wound care.
-NWB on Left foot currently
-ID managing antibiotics, currently on vancomycin.
2. DM2 with hyperglycemia
- hyperglycemia in setting of acute infection
- A1c 7.3%, previously 11.3% 6 months ago
- c/w Metformin
- No longer on Lantus
- add Low SSI
3. Essential hypertension
-continue lisinopril
-Blood pressure better controlled with addition of procardia
4. Chronic normocytic anemia
-unclear etiology
DVT ppx: Lovenox
Code: Full
Anticipated Discharge: 24 - 48 hours
Subjective/Interval History
-
Date of Service: March 25, 2024
No complaints overnight
Objective Data
-
Labs:
Laboratory Results
03/25/24
12:09
Sodium 142
Potassium 4.5
Chloride 103
Carbon Dioxide 24
BUN 30 H
Creatinine 1.1
Glucose 209 H
Calcium 9.4
Vital Signs:
Vital Signs
Temp Pulse Resp BP Pulse Ox
98.5 F 55 18 136/76 96
03/25/24 08:09 03/25/24 09:04 03/25/24 08:09 03/25/24 09:04 03/25/24 08:09
I&O
03/24/24 03/25/24 03/26/24
06:59 06:59 06:59
Intake Total 1220 / 1220 890 / 890
Output Total 850 / 850 0 / 0
Balance 370 / 370 890 / 890
Review of Systems
-
Respiratory: Reports No Symptoms
Cardiac: Reports No Symptoms
Abdomen/GI: Reports No Symptoms
Physical Exam
-
General: No Apparent Distress and Comfortable
HEENT: Negative Oxygen
Respiratory: Clear to Auscultation
Cardiac: Regular Rhythm and S1/S2; Negative Murmur or Rub
GI: Soft, Nontender and Nondistended
Musculoskeletal: No Edema and Other (Left foot bandage)
Neuro: Awake, Alert, Oriented, No Motor Deficits and Nonfocal/Grossly Intact
Psych: Calm
--- NOTE | 2024-03-25 15:11 | CM ---
CM reviewed chart, patient seen ambulating with PT, recommending home with assist, recommending commode upon discharge. CM will continue to follow for all discharge planning needs, watch for script for home IV antibiotic needs.
Plan; home with assist from friends, watch for home IV antibiotic needs, will need commode.
[2024-03-25 15:22] VITALS: BP 127/75
--- NOTE | 2024-03-25 15:58 | W.PN.ID1 ---
Date of Service
Date of Service: March 25, 2024
Today's Communication
Awaiting pathology - spoke with path- anticipated today - low threshold to plan course of home IV antibiotics
Assessment / Plan
Osteomyelitis of 2nd metatarsal/phalanx, head of 3rd metatarsal/phalanx, 2nd/3rd MTP joints
- Suspected relapse
H/o Osteomyelitis due to MSSA
Diabetic Foot Infection
DM2
Recommendations:
03/17 Aerobic and anaerobic cultures of the wound done - gram stain few GPCs, culture mixed aleksandr
03/20 s/p left foot TMA
03/20 OR tissue culture: gram stain negative and no growth to date
Pathology pending
Continue with vancomycin
Awaiting pathology - spoke with path- anticipated today - low threshold to plan course of home IV antibiotics
����������������������������������������������������������
Chief Complaint
-: Other (Left foot osteomyelitis)
Subjective / Review of Systems
afebrile
no complaints
discussed MRI findings and culture
Vital Signs / Physical Exam
Vital Signs
Vital Signs
Temp Pulse Resp BP Pulse Ox
97.9 F 62 18 127/75 97
03/25/24 15:22 03/25/24 15:22 03/25/24 15:22 03/25/24 15:22 03/25/24 15:22
Physical Exam
Constitutional: No Acute Distress
Cardiovascular: Regular Rate
Pulmonary: Symmetric
Neurological: Awake
Objective Data
Lab Data
Lab Results
03/23/24 08:54
03/25/24 12:09
ESR 64 mm/hour (0-20) H 03/17/24 13:12
Estimated Creat Clear 93 ml/min 03/25/24 12:09
Total Bilirubin 0.7 mg/dl (0.2-1.3) 03/17/24 13:12
AST 24 U/L (17-59) 03/17/24 13:12
ALT 18 U/L (0-50) 03/17/24 13:12
Alkaline Phosphatase 60 U/L (38-126) 03/17/24 13:12
C-Reactive Protein 42.90 mg/L (0.0-10.00) H 03/17/24 13:12
Most recent labs reviewed.
Micro Results:
03/20/24 17:05 Tissue Culture - Final
Foot - Left No Growth After 72 Hours
Gram Stain - Final
03/17/24 17:18 Wound Culture - Final
Foot - Left Gram Stain - Final
03/17/24 17:18 Anaerobic Culture - Final
Foot - Left NO ANAEROBES ISOLATED
03/20/24 09:00 MRSA Screen - Final
Nose No Methicillin Resistant Staphylococcus aureus isolated.
Imaging:
03/20/2024 X-ray left foot: There has been a transmetatarsal amputation of all 5 metatarsals. There is a surgical drain in the dorsal soft tissues of the left foot which extends distally over the site of amputation. There is a large amount of soft
tissue swelling throughout the mid foot.
[2024-03-25 18:04] LABS: Glucose - Point of Care 161 mg/dl (70-99)
[2024-03-25] MEDS: NOVOLOG FLEXPEN-LOW RESISTANCE 1 UNITS SC (18:22)
[2024-03-25] MEDS: CRESTOR 10 MG PO (21:16)
[2024-03-25] MEDS: ZETIA 10 MG PO (21:17)
[2024-03-25 21:24] LABS: Glucose - Point of Care 170 mg/dl (70-99)
[2024-03-25 23:00] VITALS: BP 134/78
[2024-03-26] MEDS: VANCOCIN 200 IV ×2 (05:09→17:25)
[2024-03-26 07:00] VITALS: BP 155/76
[2024-03-26 07:31] LABS: Glucose - Point of Care 177 mg/dl (70-99)
[2024-03-26] MEDS: ZESTRIL 5 MG PO (09:18)
[2024-03-26] MEDS: NOVOLOG FLEXPEN-LOW RESISTANCE 1 UNITS SC ×2 (09:18→12:58)
[2024-03-26] MEDS: VITAMIN B-12 1000 MCG PO (09:19)
[2024-03-26] MEDS: PROCARDIA XL (EXTENDED RELEASE) 30 MG PO (09:19)
[2024-03-26 09:52] LABS: Blood Urea Nitrogen 30 mg/dl (9-20); Calcium 9.3 mg/dl (8.4-10.2); Carbon Dioxide 23 mmol/L (22-30); Chloride 102 mmol/L (98-107); Estimated Creatinine Clearance 93 ml/min; Glucose 177 mg/dl (70-99); Potassium 4.5 mmol/L (3.5-5.1); Sodium 140 mmol/L (135-145); eGFR > 60.00
--- NOTE | 2024-03-26 10:29 | CM ---
Addendum entered by Ese Choudhury 03/26/24 13:22:
Per [facility], knee scooter will be covered as per [facility] coverage rates.
Commode will not be covered and will cost $60, will discuss with patient.
Original Note:
Patient seen bedside, [place] speaking.
Father Jose Alberto was in the room to translate.
Patient from [facility], plan is return back there.
Father Jose Alberto will transport.
Patient would like [facility] for wound care and PT/OT. TT to liaison
Patient would like a commode and knee scooter.
PCP: BRI Hammond [phone] (verified with [facility]), admissions to enter.
TC to [facility] commode and scooter is covered under insurance and can be delivered.
Plan: home with [facility] and equipment.
--- NOTE | 2024-03-26 10:59 | VNURNOTE ---
Home Health Liaison met with patient to discuss [facility] nurse/therapy, visits, schedule and homebound status. Patient is agreeable and understands that visits at home will be 2-3 x per week to assess and teach wound care and medical management. [facility]
brochure provided with contact information. Patient is aware that [facility] will contact them for start of care in 1-2 days after discharge from . DME with [facility]. [facility] referral completed in [facility].
[2024-03-26 12:17] LABS: Glucose - Point of Care 182 mg/dl (70-99)
[2024-03-26 15:00] VITALS: BP 135/76
--- NOTE | 2024-03-26 15:32 | W.PN.HOSP.TC ---
Today's Communication/Plan
-
await bone biopsy report
further abx recommendation based on report
Assessment / Plan
Assessment / Plan
LLE MRI
Acute osteomyelitis involving the entire second metatarsal, the majority of the second proximal phalanx, the head of the third metatarsal, and the third proximal phalanx with osseous destructive changes of osteomyelitis/septic arthritis centered at
the second and third metatarsophalangeal joints. Large plantar soft tissue wounds. Chronic dorsal dislocations of the second and third metatarsophalangeal joints.
1. Left diabetic foot infection and osteomyelitis
Hx MRSA POS WD infection : s/p debrided callus last Sunday03/10/24 from plantar surface
-MRI foot report as above
-Lower ext art doppler normal and did not show any critical narrowing.
-s/p TMA on 03/20 . Intraoperative better culture negative. Bone biopsy report pending.
-Pods f/ued and removed drain. getting wound care.
-NWB on Left foot currently
-ID managing antibiotics, currently on vancomycin.
2. DM2 with hyperglycemia
- hyperglycemia in setting of acute infection
- A1c 7.3%, previously 11.3% 6 months ago
- c/w Metformin
- No longer on Lantus
- add Low SSI
3. Essential hypertension
-continue lisinopril
-Blood pressure better controlled with addition of procardia
4. Chronic normocytic anemia
-unclear etiology
DVT ppx: Lovenox
Code: Full
Anticipated Discharge: Today
Subjective/Interval History
-
Date of Service: March 26, 2024
no complains overnight
Objective Data
-
Labs:
Laboratory Results
03/26/24
07:09
Sodium 140
Potassium 4.5
Chloride 102
Carbon Dioxide 23
BUN 30 H
Creatinine 1.1
Glucose 177 H
Calcium 9.3
Vital Signs:
Vital Signs
Temp Pulse Resp BP Pulse Ox
99.1 F 63 18 135/76 96
03/26/24 15:00 03/26/24 15:00 03/26/24 15:00 03/26/24 15:00 03/26/24 15:00
I&O
03/25/24 03/26/24 03/27/24
06:59 06:59 06:59
Intake Total 890 / 890 860 / 860
Output Total 0 / 0 0 / 0
Balance 890 / 890 860 / 860
Review of Systems
-
Respiratory: Reports No Symptoms
Cardiac: Reports No Symptoms
Abdomen/GI: Reports No Symptoms
Physical Exam
-
General: No Apparent Distress and Comfortable
HEENT: Negative Oxygen
Respiratory: Clear to Auscultation
Cardiac: Regular Rhythm and S1/S2; Negative Murmur or Rub
GI: Soft, Nontender and Nondistended
Musculoskeletal: No Edema and Other (Left foot bandage)
Neuro: Awake, Alert, Oriented, No Motor Deficits and Nonfocal/Grossly Intact
Psych: Calm
--- NOTE | 2024-03-26 15:57 | PHA.VAN.FU ---
Vancomycin Assessment / Plan
- Assessment
Renal Function: Stable
In the past 24 hrs, patient has been: Afebrile
- Dosing Plan
Continue: Vanc 1000mg Q12H
- Monitoring Plan
Peak Level: 03/26 20:30 - if remains admitted
Trough Level: 03/27 05:30 - if remains admitted
Monitoring Comments: levels to be drawn after 5th maintenance dose
- Follow Up
Pharmacy will continue to follow.
Vancomycin Follow UP
- -
Patient Age: 48
Patient Sex: Male
Vancomycin Day #: 10
Indication: Skin And Soft Tissue
Requesting Provider: Elmira Lyman / Dr. Ellis
Pertinent Antimicrobial Allergies:
NKDA
Height / Weight:
Height 6 ft 2 in
Actual Weight 102.058 kg
Pertinent Past Medical History: DM, L toe amputation 04/27
- Vital Signs / Lab Results
Temp Pulse Resp BP Pulse Ox
99.1 F 63 18 135/76 96
03/26/24 15:00 03/26/24 15:00 03/26/24 15:00 03/26/24 15:00 03/26/24 15:00
Lab Results - Chemistry
03/25/24 03/26/24
12:09 07:09
BUN 30 H 30 H
Creatinine 1.1 1.1
Estimated Creat Clear 93 93
Therapeutic Drug Monitoring
Vancomycin Peak 23.0 ug/ml (18-26) 03/23/24 08:54
Vancomycin Trough 6.9 ug/ml (5-20) 03/24/24 06:34
[2024-03-26 16:53] LABS: Glucose - Point of Care 204 mg/dl (70-99)
[2024-03-26] MEDS: NOVOLOG FLEXPEN-LOW RESISTANCE 2 UNITS SC (17:25)
--- NOTE | 2024-03-26 17:31 | W.PN.POD ---
Today's Communication
Today's Communication
Dressing changed and surgical site stable.
OK for discharge once pathology results are available and ID plans for outpatient antibiotic therapy
Assessment / Plan
-
Left foot diabetic infected ulcer probing to bone. Osteomyelitis 2,3 metatarsals and 2,3 proximal phalanx as well as septic arthritis as per MRI
-Post op Transmetatarsal amputation left foot.
-Excellent appearance as skin color and turgor are normal. No dehiscence and no drainage.
-Ambulate with walker and wedge surgical shoe
-intraoperative culture shows no growth. Await pathology of clean margin as MRI showed acute osteomyelitis of the entire 2nd metatarsal. Defer to ID to determine outpatient antibiotic therapy
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
Diabetes with peripheral neuropathy
-recent HgbA1c 7.3%
Essential Hypertension
Subjective
Objective
Temp Pulse Resp BP Pulse Ox
99.1 F 63 18 135/76 96
03/26/24 15:00 03/26/24 15:00 03/26/24 15:00 03/26/24 15:00 03/26/24 15:00
03/23/24 08:54
03/26/24 07:09
Vital Signs and Lab results were reviewed.
--- NOTE | 2024-03-26 17:33 | W.PN.ID1 ---
Date of Service
Date of Service: March 26, 2024
Today's Communication
Pathology pending - spoke with pathologist Dr Skelton - unfortunately finalized report now anticipated tomorrow
Continue with vancomycin
Awaiting pathology
Assessment / Plan
Osteomyelitis of 2nd metatarsal/phalanx, head of 3rd metatarsal/phalanx, 2nd/3rd MTP joints
- Suspected relapse
H/o Osteomyelitis due to MSSA
Diabetic Foot Infection
DM2
Recommendations:
03/17 Aerobic and anaerobic cultures of the wound done - gram stain few GPCs, culture mixed aleksandr
03/20 s/p left foot TMA
03/20 OR tissue culture: gram stain negative and no growth to date
Pathology pending - spoke with pathologist Dr Skelton - unfortunately finalized report now anticipated tomorrow
Continue with vancomycin
Awaiting pathology
����������������������������������������������������������
Chief Complaint
-: Other (Left foot osteomyelitis)
Subjective / Review of Systems
afebrile
bp stable
Vital Signs / Physical Exam
Vital Signs
Vital Signs
Temp Pulse Resp BP Pulse Ox
99.1 F 63 18 135/76 96
03/26/24 15:00 03/26/24 15:00 03/26/24 15:00 03/26/24 15:00 03/26/24 15:00
Physical Exam
Constitutional: No Acute Distress
Cardiovascular: Regular Rate
Pulmonary: Symmetric
Gastrointestinal: Non Distended
Wound: Other (dressing clean, dry, intact)
Objective Data
Lab Data
Lab Results
03/23/24 08:54
03/26/24 07:09
ESR 64 mm/hour (0-20) H 03/17/24 13:12
Estimated Creat Clear 93 ml/min 03/26/24 07:09
Total Bilirubin 0.7 mg/dl (0.2-1.3) 03/17/24 13:12
AST 24 U/L (17-59) 03/17/24 13:12
ALT 18 U/L (0-50) 03/17/24 13:12
Alkaline Phosphatase 60 U/L (38-126) 03/17/24 13:12
C-Reactive Protein 42.90 mg/L (0.0-10.00) H 03/17/24 13:12
Most recent labs reviewed.
Micro Results:
03/20/24 17:05 Tissue Culture - Final
Foot - Left No Growth After 72 Hours
Gram Stain - Final
03/17/24 17:18 Wound Culture - Final
Foot - Left Gram Stain - Final
03/17/24 17:18 Anaerobic Culture - Final
Foot - Left NO ANAEROBES ISOLATED
03/20/24 09:00 MRSA Screen - Final
Nose No Methicillin Resistant Staphylococcus aureus isolated.
Imaging:
03/20/2024 X-ray left foot: There has been a transmetatarsal amputation of all 5 metatarsals. There is a surgical drain in the dorsal soft tissues of the left foot which extends distally over the site of amputation. There is a large amount of soft
tissue swelling throughout the mid foot.
[2024-03-26] MEDS: ZETIA 10 MG PO (21:09)
[2024-03-26] MEDS: CRESTOR 10 MG PO (21:09)
[2024-03-26 21:27] LABS: Vancomycin Peak 21.7 ug/ml (18-26)
[2024-03-26 21:41] LABS: Glucose - Point of Care 192 mg/dl (70-99)
[2024-03-26 23:30] VITALS: BP 121/70
[2024-03-27 07:00] VITALS: BP 115/74
[2024-03-27] MEDS: VANCOCIN 200 IV ×2 (07:07→17:37)
[2024-03-27 07:22] LABS: Blood Urea Nitrogen 29 mg/dl (9-20); Calcium 9.7 mg/dl (8.4-10.2); Carbon Dioxide 25 mmol/L (22-30); Chloride 101 mmol/L (98-107); Estimated Creatinine Clearance 86 ml/min; Glucose 162 mg/dl (70-99); Potassium 4.4 mmol/L (3.5-5.1); Sodium 142 mmol/L (135-145); eGFR > 60.00
[2024-03-27 07:39] LABS: Vancomycin Trough 12.3 ug/ml (5-20)
[2024-03-27 08:21] LABS: Glucose - Point of Care 197 mg/dl (70-99)
--- NOTE | 2024-03-27 08:30 | PHA.VAN.FU ---
Vancomycin Assessment / Plan
- Assessment
Renal Function: Stable
In the past 24 hrs, patient has been: Afebrile
- Assessment - Therapeutic Drug Monitoring
Extrapolated Cmax (mcg/mL): 25.3
Peak level was drawn: Appropriately (darwn ~2.6H after end of infusion)
Extrapolated Cmin (mcg/mL): 13.2
Trough Drawn: Appropriately
Levels were drawn: At steady state (levels drawn after 5th dose of current regimen)
Calculated AUC (mcg*h/mL): 448
Calculated ke: 0.0593
Calculated half life (H): 11.7
Calculated Vd (L): 75 (~0.7 L/kg)
Calculated Vanc CL (ml/min): 74
- Dosing Plan
Continue: Vanc 1000mg Q12H
Dosing Comments: half-life improved
- Monitoring Plan
Level(s) appropriate: Recheck trough at minimum of weekly intervals, Repeat sooner for changes in renal function or clinical status
Next Level Due (Date): by 04/03
- Follow Up
Pharmacy will continue to follow.
Vancomycin Follow UP
- -
Patient Age: 48
Patient Sex: Male
Vancomycin Day #: 11
Indication: Skin And Soft Tissue
Requesting Provider: Elmira Lyman / Dr. Ellis
Pertinent Antimicrobial Allergies:
NKDA
Height / Weight:
Height 6 ft 2 in
Actual Weight 102.058 kg
Pertinent Past Medical History: DM, L toe amputation 04/27
- Vital Signs / Lab Results
Temp Pulse Resp BP Pulse Ox
97.7 F 59 14 121/70 97
03/26/24 23:30 03/26/24 23:30 03/26/24 23:30 03/26/24 23:30 03/26/24 23:30
Lab Results - Chemistry
03/25/24 03/26/24 03/27/24
12:09 07:09 06:36
BUN 30 H 30 H 29 H
Creatinine 1.1 1.1 1.2
Estimated Creat Clear 93 93 86
Therapeutic Drug Monitoring
Vancomycin Peak 21.7 ug/ml (18-26) 03/26/24 21:02
Vancomycin Trough 12.3 ug/ml (5-20) 03/27/24 06:36
[2024-03-27 08:45] LABS: Glucose - Point of Care 185 mg/dl (70-99)
[2024-03-27] MEDS: NOVOLOG FLEXPEN-LOW RESISTANCE 1 UNITS SC ×2 (09:16→18:29)
[2024-03-27] MEDS: PROCARDIA XL (EXTENDED RELEASE) 30 MG PO (09:16)
[2024-03-27] MEDS: VITAMIN B-12 1000 MCG PO (09:17)
[2024-03-27] MEDS: ZESTRIL 5 MG PO (09:17)
--- NOTE | 2024-03-27 10:14 | CM ---
Addendum entered by Sinai Steele 03/27/24 13:13:
CM received script for IV antibiotics- patient will require 6 weeks. Fax to [facility], will follow up with Mita from [facility] once benefits are run.
Original Note:
Patient seen bedside, placed call to friend, Whit, to discuss cost of bedside commode, aware that cost of commode is $60, agreeable to receive commode through [facility]. CM spoke with Alia from [facility], aware patient requesting commode
as well, will be delivered today. CM will watch for home IV antibiotic needs, patient aware. CM will continue to follow for all discharge planning needs.
Plan; home with NILSA, equipment from [facility], watch for IV antibiotic needs.
[2024-03-27 11:27] VITALS: BP 134/74; PULSE 68
[2024-03-27 12:34] LABS: Glucose - Point of Care 214 mg/dl (70-99)
[2024-03-27] MEDS: NOVOLOG FLEXPEN-LOW RESISTANCE 2 UNITS SC (13:10)
--- NOTE | 2024-03-27 13:29 | W.PN.HOSP.TC ---
Today's Communication/Plan
-
discharge planning
Assessment / Plan
Assessment / Plan
LLE MRI
Acute osteomyelitis involving the entire second metatarsal, the majority of the second proximal phalanx, the head of the third metatarsal, and the third proximal phalanx with osseous destructive changes of osteomyelitis/septic arthritis centered at
the second and third metatarsophalangeal joints. Large plantar soft tissue wounds. Chronic dorsal dislocations of the second and third metatarsophalangeal joints.
1. Left diabetic foot infection and osteomyelitis
Hx MRSA POS WD infection : s/p debrided callus last Sunday03/10/24 from plantar surface
-MRI foot report as above
-Lower ext art doppler normal and did not show any critical narrowing.
-s/p TMA on 03/20 . Intraoperative better culture negative.
-Pods f/ued and removed drain. getting wound care.
-NWB on Left foot currently
-Bone biopsy report negative for any signs of osteomyelitis.
-ID recommended 6 weeks of suppressive abx course.
-Will order PICC line and will require infusion set up
2. DM2 with hyperglycemia
- hyperglycemia in setting of acute infection
- A1c 7.3%, previously 11.3% 6 months ago
- c/w Metformin
- No longer on Lantus
- add Low SSI
3. Essential hypertension
-continue lisinopril
-Blood pressure better controlled with addition of procardia
4. Chronic normocytic anemia
-unclear etiology
DVT ppx: Lovenox
Code: Full
Anticipated Discharge: 24 - 48 hours
Subjective/Interval History
-
Date of Service: March 27, 2024
No issues overnight
Objective Data
-
Labs:
Laboratory Results
03/27/24
06:36
Sodium 142
Potassium 4.4
Chloride 101
Carbon Dioxide 25
BUN 29 H
Creatinine 1.2
Glucose 162 H
Calcium 9.7
Vital Signs:
Vital Signs
Temp Pulse Resp BP Pulse Ox
98.2 F 55 20 115/74 97
03/27/24 07:00 03/27/24 07:00 03/27/24 07:00 03/27/24 09:16 03/27/24 08:00
I&O
03/26/24 03/27/24 03/28/24
06:59 06:59 06:59
Intake Total 860 / 860 720 / 720
Output Total 0 / 0 150 / 150
Balance 860 / 860 570 / 570
Review of Systems
-
Respiratory: Reports No Symptoms
Cardiac: Reports No Symptoms
Abdomen/GI: Reports No Symptoms
Physical Exam
-
General: No Apparent Distress and Comfortable
HEENT: Negative Oxygen
Respiratory: Clear to Auscultation
Cardiac: Regular Rhythm and S1/S2; Negative Murmur or Rub
GI: Soft, Nontender and Nondistended
Musculoskeletal: No Edema and Other (Left foot bandage)
Neuro: Awake, Alert, Oriented, No Motor Deficits and Nonfocal/Grossly Intact
Psych: Calm
[2024-03-27 15:00] VITALS: BP 113/57
--- NOTE | 2024-03-27 15:14 | W.PN.ID1 ---
Date of Service
Date of Service: March 27, 2024
Today's Communication
OR pathology with chronic osteomyelitis at the tissue margin
Continue with vancomycin - plan 6 weeks of rx
after completion of therapy then switch to doxycycline 100 mg PO BID indefinitely for suppression
PICC ordered
Follow up in my clinic
Assessment / Plan
Osteomyelitis of 2nd metatarsal/phalanx, head of 3rd metatarsal/phalanx, 2nd/3rd MTP joints
- Suspected relapse
H/o Osteomyelitis due to MSSA
Diabetic Foot Infection
DM2
Recommendations:
OR pathology with chronic osteomyelitis at the tissue margin
Continue with vancomycin - plan 6 weeks of rx
after completion of therapy then switch to doxycycline 100 mg PO BID indefinitely for suppression
PICC ordered
Follow up in my clinic
����������������������������������������������������������
Chief Complaint
-: Other (Left foot osteomyelitis)
Subjective / Review of Systems
afebrile
bp stable
no complaints
reviewed path
Vital Signs / Physical Exam
Vital Signs
Vital Signs
Temp Pulse Resp BP Pulse Ox
98.2 F 55 20 115/74 97
03/27/24 07:00 03/27/24 07:00 03/27/24 07:00 03/27/24 09:16 03/27/24 08:00
Physical Exam
Constitutional: No Acute Distress
Cardiovascular: Regular Rate and S1/S2; Negative Murmur or Rub
Pulmonary: Clear and Symmetric; Negative Wheezes or Rales
Gastrointestinal: Soft, Non Tender, Non Distended and Normal Bowel Sounds
Skin: Warm and Dry; Negative Rash or Jaundice
Wound: Other (dressing clean, dry, intact)
Objective Data
Lab Data
Lab Results
03/23/24 08:54
03/27/24 06:36
ESR 64 mm/hour (0-20) H 03/17/24 13:12
Estimated Creat Clear 86 ml/min 03/27/24 06:36
Total Bilirubin 0.7 mg/dl (0.2-1.3) 03/17/24 13:12
AST 24 U/L (17-59) 03/17/24 13:12
ALT 18 U/L (0-50) 03/17/24 13:12
Alkaline Phosphatase 60 U/L (38-126) 03/17/24 13:12
C-Reactive Protein 42.90 mg/L (0.0-10.00) H 03/17/24 13:12
Most recent labs reviewed.
Micro Results:
03/20/24 17:05 Tissue Culture - Final
Foot - Left No Growth After 72 Hours
Gram Stain - Final
03/17/24 17:18 Wound Culture - Final
Foot - Left Gram Stain - Final
03/17/24 17:18 Anaerobic Culture - Final
Foot - Left NO ANAEROBES ISOLATED
03/20/24 09:00 MRSA Screen - Final
Nose No Methicillin Resistant Staphylococcus aureus isolated.
Imaging:
03/20/2024 X-ray left foot: There has been a transmetatarsal amputation of all 5 metatarsals. There is a surgical drain in the dorsal soft tissues of the left foot which extends distally over the site of amputation. There is a large amount of soft
tissue swelling throughout the mid foot.
Care Review
Plan reviewed with: Physician (Dr Centeno and Dr Alejandra - plan treatment for chronic osteo)
[2024-03-27 17:32] LABS: Glucose - Point of Care 189 mg/dl (70-99)
--- NOTE | 2024-03-27 18:08 | PTCARENOTE ---
PCT made this RN aware of patient's HR in the 30s while obtaining vitals. This RN checked an apical pulse, HR 35. Patient denying lightheadedness, dizziness, chest pain, and/or any other symptoms. BP 113/57. EKG obtained, showed NSR with PACs.
made aware, orders for Mg and phos levels obtained. Plan of care ongoing.
[2024-03-27 18:33] LABS: Magnesium 1.8 mg/dl (1.6-2.3); Phosphorus 3.8 mg/dl (2.5-4.5)
[2024-03-27] MEDS: CRESTOR 10 MG PO (20:58)
[2024-03-27] MEDS: ZETIA 10 MG PO (20:58)
[2024-03-27 21:12] LABS: Glucose - Point of Care 142 mg/dl (70-99)
[2024-03-27 23:02] VITALS: BP 127/71
[2024-03-28] MEDS: VANCOCIN 200 IV (05:04)
[2024-03-28 06:24] LABS: Blood Urea Nitrogen 31 mg/dl (9-20); Calcium 9.3 mg/dl (8.4-10.2); Carbon Dioxide 25 mmol/L (22-30); Chloride 102 mmol/L (98-107); Estimated Creatinine Clearance 93 ml/min; Glucose 143 mg/dl (70-99); Potassium 4.4 mmol/L (3.5-5.1); Sodium 140 mmol/L (135-145); eGFR > 60.00
[2024-03-28 07:04] VITALS: BP 116/63
[2024-03-28 07:56] LABS: Glucose - Point of Care 185 mg/dl (70-99)
--- NOTE | 2024-03-28 08:25 | PHA.VAN.FU ---
Vancomycin Assessment / Plan
- Assessment
Renal Function: Stable
In the past 24 hrs, patient has been: Afebrile
- Dosing Plan
Continue: Vanc 1000mg Q12H
Patient has had borderline half-life this admission
Levels appropriate yesterday but may require dosing adjustment down the line
- Monitoring Plan
Level(s) appropriate: Recheck trough at minimum of weekly intervals, Repeat sooner for changes in renal function or clinical status
Next Level Due (Date): ~04/03
- Follow Up
Pharmacy will continue to follow.
Vancomycin Follow UP
- -
Patient Age: 48
Patient Sex: Male
Vancomycin Day #: 12
Indication: Skin And Soft Tissue
Requesting Provider: Elmira Lyman / Dr. Ellis
Pertinent Antimicrobial Allergies:
NKDA
Height / Weight:
Height 6 ft 2 in
Actual Weight 102.058 kg
Pertinent Past Medical History: DM, L toe amputation 04/27
- Vital Signs / Lab Results
Temp Pulse Resp BP Pulse Ox
98.0 F 57 18 116/63 97
03/28/24 07:04 03/28/24 07:04 03/28/24 07:04 03/28/24 07:04 03/28/24 07:04
Lab Results - Chemistry
03/25/24 03/26/24 03/27/24
12:09 07:09 06:36
BUN 30 H 30 H 29 H
Creatinine 1.1 1.1 1.2
Estimated Creat Clear 93 93 86
03/28/24
04:40
BUN 31 H
Creatinine 1.1
Estimated Creat Clear 93
Therapeutic Drug Monitoring
Vancomycin Peak 21.7 ug/ml (18-26) 03/26/24 21:02
Vancomycin Trough 12.3 ug/ml (5-20) 03/27/24 06:36
[2024-03-28] MEDS: PROCARDIA XL (EXTENDED RELEASE) 30 MG PO (08:45)
[2024-03-28] MEDS: VITAMIN B-12 1000 MCG PO (08:45)
[2024-03-28] MEDS: NOVOLOG FLEXPEN-LOW RESISTANCE 1 UNITS SC (08:45)
[2024-03-28] MEDS: ZESTRIL 5 MG PO (08:45)
--- NOTE | 2024-03-28 10:22 | CM ---
CM reviewed with Mita from [facility], patient covered 100%, no deductible. Mita will do bedside teaching around 12:00 p.m. Patient seen bedside, discussed plan for Mita to come for teaching, hopeful for discharge today. Patient confirms he will
have someone come to hospital to be here for teaching. Patient confirms he has had home antibiotics in the past and is familiar. Patient received delivery of knee scooter and commode. Patient followed by VN, will update on discharge plan. CM will
continue to follow for all discharge planning needs.
Plan[facility]
VN
[facility]
[2024-03-28 12:00] LABS: Glucose - Point of Care 199 mg/dl (70-99)
--- NOTE | 2024-03-28 13:36 | W.PN.ID1 ---
Date of Service
Date of Service: March 28, 2024
Today's Communication
Continue with vancomycin - plan 6 weeks of rx
after completion of therapy then switch to doxycycline 100 mg PO BID indefinitely for suppression
Follow up in my clinic
Assessment / Plan
Osteomyelitis of 2nd metatarsal/phalanx, head of 3rd metatarsal/phalanx, 2nd/3rd MTP joints
- Suspected relapse
H/o Osteomyelitis due to MSSA
Diabetic Foot Infection
DM2
Recommendations:
OR pathology with chronic osteomyelitis at the tissue margin
Continue with vancomycin - plan 6 weeks of rx
after completion of therapy then switch to doxycycline 100 mg PO BID indefinitely for suppression
PICC in place
Follow up in my clinic
����������������������������������������������������������
Chief Complaint
-: Other (Left foot osteomyelitis)
Subjective / Review of Systems
afebrile
bp stable
no complaints
Vital Signs / Physical Exam
Vital Signs
Vital Signs
Temp Pulse Resp BP Pulse Ox
98.0 F 57 18 116/63 97
03/28/24 07:04 03/28/24 07:04 03/28/24 07:04 03/28/24 07:04 03/28/24 07:04
Physical Exam
Constitutional: No Acute Distress
Cardiovascular: Regular Rate
Pulmonary: Symmetric and Non Labored
Gastrointestinal: Non Distended
Wound: Other (dressing, clean, dry, intact)
Neurological: Awake
Lines: PICC
Objective Data
Lab Data
Lab Results
03/23/24 08:54
03/28/24 04:40
ESR 64 mm/hour (0-20) H 03/17/24 13:12
Estimated Creat Clear 93 ml/min 03/28/24 04:40
Total Bilirubin 0.7 mg/dl (0.2-1.3) 03/17/24 13:12
AST 24 U/L (17-59) 03/17/24 13:12
ALT 18 U/L (0-50) 03/17/24 13:12
Alkaline Phosphatase 60 U/L (38-126) 03/17/24 13:12
C-Reactive Protein 42.90 mg/L (0.0-10.00) H 03/17/24 13:12
Most recent labs reviewed.
Micro Results:
03/20/24 17:05 Tissue Culture - Final
Foot - Left No Growth After 72 Hours
Gram Stain - Final
03/17/24 17:18 Wound Culture - Final
Foot - Left Gram Stain - Final
03/17/24 17:18 Anaerobic Culture - Final
Foot - Left NO ANAEROBES ISOLATED
03/20/24 09:00 MRSA Screen - Final
Nose No Methicillin Resistant Staphylococcus aureus isolated.
Imaging:
03/20/2024 X-ray left foot: There has been a transmetatarsal amputation of all 5 metatarsals. There is a surgical drain in the dorsal soft tissues of the left foot which extends distally over the site of amputation. There is a large amount of soft
tissue swelling throughout the mid foot.
--- NOTE | 2024-03-28 14:48 | W.PN.HOSP.TC ---
Today's Communication/Plan
-
d/c home with IV abx setup
Assessment / Plan
Assessment / Plan
LLE MRI
Acute osteomyelitis involving the entire second metatarsal, the majority of the second proximal phalanx, the head of the third metatarsal, and the third proximal phalanx with osseous destructive changes of osteomyelitis/septic arthritis centered at
the second and third metatarsophalangeal joints. Large plantar soft tissue wounds. Chronic dorsal dislocations of the second and third metatarsophalangeal joints.
1. Left diabetic foot infection and osteomyelitis
Hx MRSA POS WD infection : s/p debrided callus last Sunday03/10/24 from plantar surface
-MRI foot report as above
-Lower ext art doppler normal and did not show any critical narrowing.
-s/p TMA on 03/20 . Intraoperative better culture negative.
-Pods f/ued and removed drain. getting wound care.
-NWB on Left foot currently
-Bone biopsy report negative for any signs of osteomyelitis.
-ID recommended 6 weeks of suppressive abx course.
-PICC Line in place.
2. DM2 with hyperglycemia
- hyperglycemia in setting of acute infection
- A1c 7.3%, previously 11.3% 6 months ago
- c/w Metformin
- No longer on Lantus
- add Low SSI
3. Essential hypertension
-continue lisinopril
-Blood pressure better controlled with addition of procardia
4. Chronic normocytic anemia
-unclear etiology
DVT ppx: Lovenox
Code: Full
Anticipated Discharge: Today
Subjective/Interval History
-
Date of Service: March 28, 2024
no issues overnight
Objective Data
-
Labs:
Laboratory Results
03/28/24
04:40
Sodium 140
Potassium 4.4
Chloride 102
Carbon Dioxide 25
BUN 31 H
Creatinine 1.1
Glucose 143 H
Calcium 9.3
Vital Signs:
Vital Signs
Temp Pulse Resp BP Pulse Ox
98.0 F 57 18 116/63 97
03/28/24 07:04 03/28/24 07:04 03/28/24 07:04 03/28/24 07:04 03/28/24 07:04
I&O
03/27/24 03/28/24 03/29/24
06:59 06:59 06:59
Intake Total 720 / 720 680 / 680
Output Total 150 / 150
Balance 570 / 570 680 / 680
Review of Systems
-
Respiratory: Reports No Symptoms
Cardiac: Reports No Symptoms
Abdomen/GI: Reports No Symptoms
Physical Exam
-
General: No Apparent Distress and Comfortable
HEENT: Negative Oxygen
Respiratory: Clear to Auscultation
Cardiac: Regular Rhythm and S1/S2; Negative Murmur or Rub
GI: Soft, Nontender and Nondistended
Musculoskeletal: No Edema and Other (Left foot bandage)
Neuro: Awake, Alert, Oriented, No Motor Deficits and Nonfocal/Grossly Intact
Psych: Calm
--- NOTE | 2024-03-28 16:38 | W.DCSUMMARY ---
Discharge Summary
Discharge Data
Date of Admission: 03/17/24
Date of Discharge: 03/28/24
-
Pending Results: No
Hospital Course
Discharging Physician : Dr Freddy Centeno
Disposition : Home with home care
Primary care physician : Dr Anand Hammond
Principal Discharge diagnosis :
Left diabetic foot infection/osteomyelitis of metatarsal-phalanges
Chronic Discharge diagnosis :
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
Type 2 diabetes mellitus
Essential hypertension
Hyperlipidemia
Hospital Course :
Patient is a 48-year-old male with mentioned past medical history came to ER for having new onset left foot swelling. Patient has history of osteomyelitis and left foot and requiring greater amputation last year. Patient had an outpatient
debridement of left foot callus by podiatry in the office and was noted to having new swelling afterward. Patient was on oral antibiotic and not improving clinically. In ER patient was evaluated by ID and there was concern of having recurrence of
metatarsal osteomyelitis. MRI of the foot showing osteomyelitis of second metatarsal/second proximal phalanx/head of third metatarsal/third proximal phalanx. Patient was started on empiric IV vancomycin with known history of Staph aureus organism
in the foot in the past. A lower extremity arterial Doppler was negative for any major vascular disease. Podiatry was involved in care and patient underwent transmetatarsal amputation of the left foot. Postprocedure patient was kept in hospital
until bone biopsy resulted negative. With known history of recurrence ID recommended 6 weeks of IV vancomycin course postdischarge. PICC line was placed and home infusion set up was arranged. Patient was discharged home at this point.
Important imaging findings :
None
Procedure findings :
None
Discharge Plan
-
Patient Disposition: Home with Home Care
Discharge Diagnosis/Procedures: Left foot TMA amputation, osteomyelitis
Condition: Fair
Diet: Low Cholesterol and Diabetic, Carb Controlled
Activity: As tolerated
Driving Restrictions: No driving
Referrals:
Anand Hammond CRNP [Family Provider] - in one week
Lee Ann Alejandra DPM [Specified Professional Personl] - in one week
Prescriptions:
New
nifedipine [Procardia XL] 30 mg tablet extended release 24hr
30 mg PO DAILY Qty: 30 2RF
Continued
metformin 500 mg Tablet
500 mg PO BID@0800,1700 Qty: 60 0RF
cyanocobalamin (vitamin B-12) 1,000 mcg Tablet
1,000 mcg PO DAILY
lisinopril 5 mg tablet
5 mg PO DAILY
Santyl 250 unit/gram Ointment
1 applic TOPICAL HS
ezetimibe 10 mg Tablet
10 mg PO HS
rosuvastatin 10 mg Tablet
10 mg PO HS
Discharge Orders:
Discharge Patient (As Directed); Ordered 03/28/24
Ordered By: Freddy Centeno
Discharge Date and Time
Discharge Date/Time: 03/28/24 14:40
Print Language: ROMANIAN
== END 2024-03-28 14:40 | disposition home health service (06) | DRG 617 ==
LOC: 4 WEST ACU 15:36
PROVIDERS: Internal Medicine Infectious Disease; Nurse Practitioner Family; Radiology Vascular & Interventional Radiology; ADMITTING PHYSICIAN Internal Medicine; ATTENDING PHYSICIAN Hospitalist; CONSULT PHYSICIAN Podiatrist Foot & Ankle Surgery; EMERGENCY PHYSICIAN Emergency Medicine; FAMILY PHYSICIAN Nurse Practitioner Family; OTHER PHYSICIAN Student in an Organized Health Care Education/Training Program
PROC: 0Y6N0Z9 Detachment at Left Foot, Partial 1st Ray, Open Approach (ICD-10-PCS; 2024-03-20)
PROC: 0Y6N0ZF Detachment at Left Foot, Partial 5th Ray, Open Approach (ICD-10-PCS; 2024-03-20)
PROC: 0Y6N0ZC Detachment at Left Foot, Partial 3rd Ray, Open Approach (ICD-10-PCS; 2024-03-20)
PROC: 0Y6N0ZB Detachment at Left Foot, Partial 2nd Ray, Open Approach (ICD-10-PCS; 2024-03-20)
PROC: 0Y6N0ZD Detachment at Left Foot, Partial 4th Ray, Open Approach (ICD-10-PCS; 2024-03-20)
PROC: 02HV33Z Insertion of Infusion Device into Superior Vena Cava, Percutaneous Approach (ICD-10-PCS; 2024-03-27)
DX: E11.69 Type 2 diabetes mellitus with other specified complication (principal); L03.116 Cellulitis of left lower limb; M86.172 Other acute osteomyelitis, left ankle and foot; M86.672 Other chronic osteomyelitis, left ankle and foot; L97.429 Non-pressure chronic ulcer of left heel and midfoot with unspecified severity; M00.872 Arthritis due to other bacteria, left ankle and foot; E11.621 Type 2 diabetes mellitus with foot ulcer; E11.65 Type 2 diabetes mellitus with hyperglycemia; R79.82 Elevated C-reactive protein (CRP); I10 Essential (primary) hypertension; L84 Corns and callosities; D64.9 Anemia, unspecified; E11.42 Type 2 diabetes mellitus with diabetic polyneuropathy; E61.1 Iron deficiency; E78.5 Hyperlipidemia, unspecified; Z89.412 Acquired absence of left great toe; Z79.4 Long term (current) use of insulin; Z86.14 Personal history of Methicillin resistant Staphylococcus aureus infection; Z79.84 Long term (current) use of oral hypoglycemic drugs; Z22.321 Carrier or suspected carrier of Methicillin susceptible Staphylococcus aureus
CPT/HCPCS: 88305; 88307; 88311; 71045; 73620; 73630; 73720; 80048; 80053; 80202; 82962; 83036; 83735; 84100; 85025; 85027; 85652; 86140; 87070; 87075; 87176; 87205; 93005; 93922; 93925; 97116; 97162; 99285; A9575

== ENCOUNTER → 2024-08-27 07:06 | Outpatient (REF) | payer OTHER, SELFPAY | LOC: RCS 07:06 | PROVIDERS: ATTENDING PHYSICIAN Nurse Practitioner Family | DX: R03.0 Elevated blood-pressure reading, without diagnosis of hypertension (principal); I10 Essential (primary) hypertension | CPT/HCPCS: 93306 ==